=== PATIENT | male | born 1950 | race Caucasian/White ===

== ENCOUNTER 2025-06-22 09:01 | Outpatient (AMB) | payer MEDICARE, SELFPAY ==
[2025-06-22 09:27] VITALS: BMI 31.2
--- NOTE | 2025-06-22 09:27 | A.SPINEOV_ITS ---
Vital Signs 06/22/25 09:27 Height 5 ft 8 in Weight 205 lb BMI 31.2 Intake Visit Reasons: lumbar radiculopathy Intake Note: Mr. Farias is here today c/o whole back pain that radiates down the legs causing numbness. 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 He is a very nice 74-year-old gentleman who underwent lumbar decompression surgery with Dr. Tapia about 15 years ago with excellent success, more recently underwent a cervical laminectomy C4-[address] Sanchez in March of this year for cervical myelopathy seen on his imaging. He presents today for evaluation of back pain going down into his right leg along the distribution of the anterior thigh, posterolateral thigh and into his outer calf. He has a little difficulty articulating some details, but it sounds like he discuss his low back with Dr. Sanchez and was told he was not surgical. He was referred to your office and underwent a right L3 and right L4 TFESI for which he reports that he did have a significant improvement in the pain and tingling in his back as well as going down his right leg. In general, the back pain in the leg pain are equally as bothersome. His pain is intensified with activity and walking and goes away when he sits down. He was taking a leave for a little while, but he is on Eliquis and had to stop this. It really did not help much. He underwent physical therapy and that aggravated things. He is here today to be evaluated to see if there is anything surgical that can be done as the symptoms are progressing to where he is having a hard time doing simple things like mowing his lawn or daily tasks around the house. PMH: Again, difficulty with articulating specific details about his medical history, but reports some kind of issue with AFib, he is on Eliquis but reports he had a cardiac ablation and this resolve the issue but for reasons that remain unclear he is still on Eliquis. I am wondering if it is still paroxysmal as he did report 1 time last year he had an elevation in his heart rate, but tells me he follows his heart rate regularly on his fit bit and there has been no irregularities or elevations in the last year. He has a history of hypertension, high cholesterol, GERD, BPH. He had a shoulder replacement, ankle replacement in the above-mentioned spinal surgeries. Denies any history of coronary disease, strokes, pulmonary problems, liver or kidney disease, blood clots, cancer, diabetes or major abdominal surgery. Social hx: Quit smoking over 10 years ago, drinks socially and does not use any recreational drugs Medications: Eliquis, losartan, simvastatin, Flomax, omeprazole, hydrochlorothiazide Allergies: None Physical exam: Awake alert oriented no acute distress, able to stand and walk in the hallway, some difficulty with tandem gait walking. Strength reveals a mild weakness in his hip flexors but otherwise his strength is full. He has reduced range of motion of his right shoulder secondary to surgery. Diffusely hyperreflexic with clonus and Gannon's sign. He has a well healed scar in the back of his neck and his lower lumbar region. Imaging review: Cervical MRI done in December at [facility] reveals auto fusion of C5-6 and severe stenosis at C4-5 with cord signal change. Presumably this is the site of the surgery that Dr. Hebert did. Lumbar MRI also done at [facility] shows diffuse degenerative disc disease with scoliotic curvature at L2-3 and L3-4. There is multilevel facet arthropathy throughout the lumbar spine. There is postsurgical changes at what appear to be L5-S1 and L4-5. There is a synovial cyst on the right at L4-5 as well. I do not see that it is compressing the nerves. The L3-4 lateral recess on the right is significantly compressed as is the foramen. Impression: 74-year-old male with history of recent cervical laminectomy C4-5 for myelopathy done by Dr. Sanchez at [facility], previous history about 15 years ago of a lumbar decompression done by Dr. Tapia with excellent results. He presents today for evaluation of back pain and right anterior thigh, knee and lateral calf pain as well as some posterolateral thigh pain with standing and walking. The back pain localizes itself diffusely to the lumbar area. I reviewed his lumbar spine MRI done at [facility] in his shows diffuse degenerative disc disease with scoliotic curvature with the apex at L 3 4 where there is lateral listhesis of L3 on L4, in addition to some degree of listhesis of L2-3. He also has significant facet arthropathy all throughout the lumbar spine. There is lateral recess stenosis at L3-4 as well as foraminal stenosis in the right L3 foramen. All of this is seen in context of postsurgical changes in the lower lumbar levels, there appears to be some kind of calcified soft tissue at L5-S1. He did respond well to an injection in the right L3 and right L4 foramen. It was subtotal improvement in his pain but there was enough where it made things much he is here to get up and move around. This certainly helps us localize potential surgical target, however because of the scoliosis he would be looking at likely lumbar fusion to correct this. I would like to review his imaging with Dr. Tracey and get a set of standing flexion-extension x-rays we can be more clear on the exact degree of scoliosis. Once I have a chance to review everything I will call the patient and see if Dr. Tracey thinks he is a surgical candidate. With regard to his cervical spine, the patient continues to complain of weakness in his legs as well as numbness in his arms. It sounds like before surgery he was told that all the symptoms would go away, but given the amount of cord signal change on his preoperative MRI I counseled him that the goal of surgery in that situation generally is to prevent the patient from getting worse and that the symptoms in the arms and legs may never totally go away although sometimes the body can heel and it will improve. Thank you for allowing us to care for your patient. The total time spent with this visit with this patient was 65 minutes reviewing history, physical exam, lumbar and cervical imaging review, and implementation of treatment plan or further diagnostic testing Brent Tracey MD,PhD [facility] Orders: Orders XR lumbar spine 4V min Today M41.20 - Other idiopathic scoliosis, site unspecified Coding Level of Care Code New Pt Level 5 (02929) Diagnoses Scoliosis (and kyphoscoliosis), idiopathic M41.20 Cervical myelopathy G95.9
--- OUTSIDE RECORDS SUMMARY | 2025-06-22 09:45 | XMS_ITS | Encounter Summary ---
Author Organization [facility] Address [address] [place] [address] Care Team Providers Care Custom Furrier Name Role Phone Unavailable Primary Care Provider Unavailabl e Encounter Details Date Type Department Care Team (Late st Contact Info) Description 02/12/2025 Lab Requisition [facility] - Main Lab [address] [facility] [place] [address] Jovany Chand MD [address] [facility] [address] [place] [address] Elevated prostate specific antigen (PSA) Social History Tobacco Use Types Packs/Day Years Used Date Smoking Tobacco: Former Smokeless Tobacco: Never Alcohol Use Standard Drinks/Week Comments Yes 0 (1 standard drink = 0.6 oz pur e alcohol) Sex and Gender Information Value Date Recorded Sex Assigned at Not on file Legal Sex Male 9:59 AM EST Gender Identity Not on file Sexual Orientation Not on file documented as of this encounter Plan of Treatment Not on file documented as of this encounter Procedures Procedure Name Priority Date/Time Associated Diagnosis Comments PROSTATE SPECIFIC ANTIGEN DIAGNOSTIC Routine 02/12/2025 10:14 AM EDT Elevated prostate specific antigen (PSA) documented in this encounter Results * (ABNORMAL) Prostate specific antigen diagnostic (02/12/2025 10:14 AM EDT) PSA 12.05(H) 0.00 - 4.00 ng/mL LAB CHEMISTRY METHOD 02/12/2025 4:24 PM EDT [facility] Blood Venous blood specimen / Unknown 02/12/2025 10:14 AM EDT 02/12/2025 3:45 PM EDT Narrative [facility] - 02/12/2025 4:24 PM EDT The Siemens Advia Centaur Chemiluminescent Immunoassay is used. Results obtained with different assay methods or kits cannot be used interchangeably. Results cannot be interpreted as absolute evidence of the presence or absence of malignant disease. us Jovany Chand MD LAB BLOOD ORDERABLES Final Resul t [facility] [address] [place] [address], documented in this encounter Visit Diagnoses Diagnosis Elevated prostate specific antigen (PSA) documented in this encounter
--- OUTSIDE RECORDS SUMMARY | 2025-06-22 09:45 | XMS_ITS | Encounter Summary ---
Author Organization [facility] Address [address] [place] [phone] Phone Care Team Providers Care Ticketing Agent Name Role Phone Durga Mitchell MD Primary Care Provider Encounter Details Date Type Department Care Team (Late st Contact Info) Description 08/27/2019 Procedure Pass [facility] [address] [place] [address] Social History Tobacco Use Types Packs/Day Years Used Date Smoking Tobacco: Never Assessed Sex and Gender Information Value Date Recorded Sex Assigned at Not on file Legal Sex Male 10:15 AM EDT Gender Identity Not on file Sexual Orientation Not on file documented as of this encounter Plan of Treatment Not on file documented as of this encounter Visit Diagnoses Not on filedocumented in this encounter Care Teams Ticketing Agent Relationship Specialty Start Date End Date Durga Mitchell MD PCP - General Internal Medicine 07/01/19 documented as of this encounter Additional Source Comments The information contained in this document represents components of the legal health record. It is not the complete legal health record.[facility]
== END 2025-06-22 10:30 | disposition home or self-care (01) ==
LOC: HO.HNS 09:07
PROVIDERS: Referring Provider Physical Medicine & Rehabilitation; Visit Provider Physician Assistant
DX: M41.20 Other idiopathic scoliosis, site unspecified (principal); G95.9 Disease of spinal cord, unspecified
CPT/HCPCS: 99205

== ENCOUNTER 2025-06-22 09:01 | Outpatient (REF) | payer MEDICARE, SELFPAY ==
--- NOTE | ~2025-06-22 | XR_ITS ---
EXAMINATION: X-ray lumbar spine. CLINICAL INFORMATION: Idiopathic scoliosis TECHNIQUE: AP and lateral views. Lateral views during flexion and extension position.. COMPARISON: None FINDINGS: Multilevel marginal osteophyte formation and endplate sclerosis and decreased intervertebral disc height throughout the axial skeleton. Dextroconvex rotoscoliosis apex at L2. No acute cortical disruption. No gross lytic or blastic lesions. Old superior endplate compression deformity representing 40-50 % volume loss at L1 vertebra. No gross malalignment in neutral nor flexion and or extension position. Vascular calcifications, aorta and iliac arteries. XR/XR lumbar spine 4V min IMPRESSION: Multilevel thoracolumbar spondylosis and dextroconvex rotoscoliosis apex at L2 without acute fracture or listhesis or gross instability. Atherosclerosis disease. Electronically signed by: Costa Pulido MD 06/22/2025 10:22 AM EDT
== END 2025-06-22 09:02 | disposition home or self-care (01) ==
LOC: HO.HOSX 09:01
PROVIDERS: Referring Provider Physical Medicine & Rehabilitation; Visit Provider Physician Assistant
DX: M41.26 Other idiopathic scoliosis, lumbar region (principal); G95.9 Disease of spinal cord, unspecified; M51.360 Other intervertebral disc degeneration, lumbar region with discogenic back pain only; M47.816 Spondylosis without myelopathy or radiculopathy, lumbar region; R20.0 Anesthesia of skin; Z79.899 Other long term (current) drug therapy; Z79.01 Long term (current) use of anticoagulants; Z98.1 Arthrodesis status
CPT/HCPCS: 72110; 99202

== ENCOUNTER → 2025-06-22 10:03 | Outpatient (BNV) | payer MEDICARE, SELFPAY | PROVIDERS: Referring Provider Physical Medicine & Rehabilitation; Visit Provider Radiology Diagnostic Radiology | DX: M41.86 Other forms of scoliosis, lumbar region (principal); M47.815 Spondylosis without myelopathy or radiculopathy, thoracolumbar region; I70.90 Unspecified atherosclerosis | CPT/HCPCS: 72110 ==

== ENCOUNTER 2025-07-13 09:03 | Emergency (ER) | payer MEDICARE, SELFPAY ==
--- NOTE | ~2025-07-13 | CT_ITS ---
EXAMINATION: CT ABDOMEN AND PELVIS WITH CONTRAST CLINICAL INFORMATION: Unable to urinate. COMPARISON: None available. TECHNIQUE: Multidetector volumetric images were obtained from the superior aspect of the liver through the pubic symphysis following administration 85 mL of Omnipaque 350 intravenous contrast. Sagittal and coronal reformatted images were obtained on the technologist's workstation. Oral contrast: No This CT examination was performed using dose optimization techniques as appropriate, variously including the following: *Automated exposure control *Adjustment of mA and/or kV according to patient size (this includes techniques or standardized protocols for targeted exams where dose is matched to indication/reason for exam; i.e. extremities or head) *Use of iterative reconstruction technique. DLP: 772 mGy centimeter. FINDINGS: LUNG BASES: Pulmonary patchy groundglass in the periphery of the left lower lung lobe/lingula. LIVER, GALLBLADDER, AND BILIARY TREE: Liver measures 13 cm. No focal mass. Main portal vein and hepatic veins and intrahepatic portion of the IVC are patent 8 mm hypodensity in the posterior right hepatic lobe/segment 4 A4 B.. No pericholecystic fluid collection or gallbladder wall thickening. Gallbladder is nondistended. No intrahepatic or extrahepatic biliary ductal dilatation. PANCREAS: No focal mass. No peripancreatic fluid collection. No main pancreatic ductal dilatation. SPLEEN: 9 cm. No focal mass. ADRENAL GLANDS: No nodular lesions. KIDNEYS AND URETERS: No hydronephrosis. No gross nephrolithiasis. Subcentimeter cyst, right kidney. Nonspecific perinephric edema pattern. The ureters are not dilated. BLADDER: There is a Talavera catheter in a collapsed bladder. GASTROINTESTINAL TRACT: 3 cm diverticulum, third portion of the duodenum. Small hiatal hernia. Abundant stool large intestine. No intestinal obstruction pattern. No pneumatosis intestinalis. No pneumoperitoneum. No ascites. The appendix is normal. ABDOMINAL WALL: No gross umbilical hernia. LYMPH NODES: No mesenteric or retroperitoneal lymphadenopathy. VASCULAR: Mixed plaques throughout the abdominal aorta wall and iliac arteries the origin of the mesenteric arteries and main renal arteries. No aneurysm or dissection, abdominal aorta. Mixed plaques in the femoral arteries and the coronary arteries. Mixed plaques in the thoracic aorta. PELVIC VISCERA: There is a 7 cm heterogeneously enlarged prostate gland protruding upon the urinary bladder floor. OSSEOUS STRUCTURES: Multilevel thoracolumbar spondylosis pronounced at L2-3, L3-4. Dextroconvex rotoscoliosis apex at L2-3. Degenerative changes in the coxofemoral joints and symphysis pubis. No lytic or blastic lesions. CT/CT abdomen pelvis w IV con IMPRESSION: 7 cm heterogeneously enlarged prostate gland suggesting benign prostate hyperplasia. Malignancy cannot be entirely excluded. Fleischner guidelines were followed. Electronically signed by: Costa Pulido MD 07/13/2025 12:09 PM EDT
--- NOTE | 2025-07-13 09:13 | ED_ITS ---
HPI - General Adult General Chief complaint: Urogenital-Male Stated complaint: ABD PAIN, UNABLE TO URINATE X2D PER EMS Time Seen by Provider: 07/13/25 09:09 Source: patient and RN notes reviewed Mode of arrival: EMS Limitations: no limitations History of Present Illness ED Provider: Rl Gaston PA-C HPI narrative: 74 yo M with medical history of BPH presents to the ED due to 12 hours of inability to urinate. Patient states last urination was approximately 8:00 p.m. last night, with baseline straining to urinate, denies any blood in the urine. Patient reports he has tried to urinate with excessive straining but nothing came out. Patient awoke this morning still unable to urinate and decided to come to the ED for further evaluation. Patient states he has never experienced an episode like this in the past. Denies chest pain, shortness of breath, nausea, vomiting, blood in the urine MD complaint: inability to urinate Related Data Allergies Allergy/AdvReac Type Severity Reaction Status Date / Time No Known Allergies Allergy Verified 07/13/25 09:18 Review of Systems 2 Review of Systems: CONST: Negative for fever, body aches and chills. HENT: Negative for neck pain/stiffness, headache, congestion, sore throat, swelling. EYES: Negative for discharge/pain or vision changes. RESP: Negative for cough/hemoptysis and shortness of breath. CV: Negative chest pain, difficulty breathing, palpitations. ABD: Negative, nausea, vomiting. POS suprapubic pain and distention : Negative increase frequency, dysuria, blood in urine or stool. POS inability to urinate MUSC: Negative for muscle aches, edema. SKIN: Negative rash, lesions/sores. NEURO: Negative headache, dizziness, weakness. Yes all other systems are reviewed and are negative PMFSH Past Medical History Attestation statement: The following information was validated with the patient. Source: old records reviewed and nursing notes reviewed Social History Social History Alcohol intake: current Alcohol intake frequency: a few times a month Alcohol type: beer Smoked in Last 30 Days: No Use of substances other than those prescribed or required for medical reasons: No Advance Directives: No Advance Directives Information Provided: Yes Do you have a plan to hurt others: No Plan Physical Exam ED Vital Signs: Vital Signs - 24 hr 07/13/25 09:16 07/13/25 09:30 Temperature 97.7 F 97.5 F Pulse Rate 105 H 100 Respiratory Rate 17 18 Blood Pressure 166/86 H 166/86 H Pulse Oximetry 97 98 Oxygen Delivery Method Room Air Room Air BMI result Body Mass Index 31.1 GENERAL APPEARANCE: ?AxOx4, generally well-appearing, no acute distress. HEENT: ?NC, AT. MMM. EOMI, clear conjunctiva, oropharynx clear. NECK: ?Supple without lymphadenopathy.? No stiffness or restricted ROM. HEART:? Normal rate and regular rhythm, normal S1/S2, no m/r/g LUNGS:? CTAB, moving air well. No crackles or wheezes are heard. ABDOMEN: Belly round, mildly distended, suprapubic tenderness, distention, no overlying skin changes BACK: No CVAT, no obvious deformity. EXTREMITIES: ?Without cyanosis, clubbing or edema. NEUROLOGICAL: ?Grossly nonfocal. Alert and oriented, moving all 4 extremities. Skin: ?Warm and dry without any rash. Medications Administered Discontinued Medications Generic Name Dose Route Start Last Admin Trade Name Freq PRN Reason Stop Dose Admin Iohexol 100 ml 07/13/25 11:34 07/13/25 11:43 Iohexol 350 Mg/Ml 100 Ml Infus..Btl IV 07/13/25 11:35 85 ml ONCE ONE Administration Medical Decision Making Medical Decision Making MDM Narrative: 74 yo M with medical history of BPH presents to the ED due to 12 hours of inability to urinate. Patient states last urination was approximately 8:00 p.m. last night, with baseline straining to urinate, denies any blood in the urine. Patient reports he has tried to urinate with excessive straining but nothing came out. Patient awoke this morning still unable to urinate and decided to come to the ED for further evaluation. Patient states he has never experienced an episode like this in the past. Bladder scan revealed 1,037 mL of urine in bladder. Talavera catheter placed 900mL in Talavera bag. Plan: labs, UA, CT abdomen/pelvis for observation of obstructing stone/mass Course 12:23- Labs without leukocytosis, H and H stable, no electrolyte abnormality. UA reveals 2+ urine blood, greater than 20 urine RBCs, 0-5 urine WBCs, no urine bacteria. CT abdomen and pelvis reveals a 7 cm heterogenously enlarged prostate gland suggestive of BPH, a malignancy can not be entirely excluded. There was a patchy ground glass opacity in the left lower lung lobe however, patient without cough, shortness of breath, chest pain, afebrile, no leukocytosis/leukopenia- do not believe patient needs antibiotic therapy at this time Patient to be discharged with Talavera catheter in place and referral placed for [facility] urology follow up, patient already prescribed 0.4 tamsulosin. Differential Diagnosis Differential Diagnoses: The differential diagnosis associated with the presentation includes Obstructive nephrolithiasis BPH Prostate mass Admission/Observation Consideration of admission/observation: Escalation of care including admission/observation considered Lab Data MDM Lab Attestation statement: I reviewed the patient's lab results. 07/13/25 10:06 07/13/25 10:06 Labs: Lab Results 07/13/25 07/13/25 Range/Units 09:41 10:06 WBC 8.0 (4.8-10.8) X10*3/uL RBC 4.40 L (4.60-5.80) X10*6/uL Hgb 13.6 L (14.0-18.0) g/dl Hct 41.0 L (42.0-52.0) % MCV 93.2 (80.0-98.0) fL MCH 30.9 (27.0-33.0) pg MCHC 33.2 (31.0-36.0) g/dl RDW 13.1 (11.0-16.0) % Plt Count 193 (160-400) X10*3/uL MPV 9.7 (9.4-12.4) fL Immature Gran % (Auto) 0.5 H (0.0-0.4) % Neut % (Auto) 66.8 (45-73) % Lymph % (Auto) 21.6 (20-40) % [place] % (Auto) 10.2 (2-11) % Eos % (Auto) 0.5 (0-4) % Baso % (Auto) 0.4 (0-2) % Lymph # (Auto) 1.7 (1.2-4.9) X10*3/uL [place] # (Auto) 0.8 (0.1-1.2) X10*3/uL Eos # (Auto) 0.0 (0.0-0.4) X10*3/uL Baso # (Auto) 0.0 (0.0-0.2) X10*3/uL Abs Immat Gran (auto) 0.04 H (0.00-0.03) X10*3/uL Absolute Neuts (auto) 5.4 (2.0-8.3) x10*3/uL Absolute Nucleated RBC 0.000 (0.0-0.012) X10*3/uL Nucleated RBC % (auto) 0.0 (0.0-0.2) /100WBC Sodium 141 (135-145) mmol/L Potassium 4.0 (3.3-5.1) mmol/L Chloride 110 H (96-108) mmol/L Carbon Dioxide 16 L (22-29) mmol/L Anion Gap 19 (12-20) BUN 18 H (9-16) mg/dL Creatinine 0.81 (0.5-1.4) mg/dL Estim Creat Clear Calc 88.4 Estimated GFR > 60 Random Glucose 93 (60-115) mg/dL Calcium 8.5 (8.4-10.2) mg/dL Total Bilirubin 0.4 (0.0-1.0) mg/dL AST 42 H (5-37) U/L ALT 23 (0-40) U/L Alkaline Phosphatase 100 (39-117) U/L Total Protein 6.7 (6.5-8.0) g/dL Albumin 4.1 (3.5-5.0) g/dL Urine Color Yellow Urine Appearance Clear Urine pH 5.0 (5.0-9.0) Ur Specific [place] 1.015 (1.005-1.025) Urine Protein Trace (Neg-Trace) mg/dL Urine Glucose (UA) Negative (Negative) mg/dL Urine Ketones Trace (Negative) mg/dL Urine Blood Moderate (2+) H (Negative) Urine Nitrite Negative (Negative) Ur Leukocyte Esterase Negative (Negative) Urine RBC >20 H (0-2) /HPF Urine WBC 0-5 (0-5) /HPF Ur Squamous Epith Cells 0-2 (0-2) /HPF Urine Bacteria None Seen (None Seen) Hyaline Casts 0-2 (0-2) /LPF Independent Interpretation I performed an independent interpretation of an: CT Scan Radiology Impression Discussion of test interpretation with radiology: I have reviewed the radiologist's reading. Radiologist Impression: CT abdomen/pelvis FINDINGS: LUNG BASES: Pulmonary patchy groundglass in the periphery of the left lower lung lobe/lingula. LIVER, GALLBLADDER, AND BILIARY TREE: Liver measures 13 cm. No focal mass. Main portal vein and hepatic veins and intrahepatic portion of the IVC are patent 8 mm hypodensity in the posterior right hepatic lobe/segment 4 A4 B.. No pericholecystic fluid collection or gallbladder wall thickening. Gallbladder is nondistended. No intrahepatic or extrahepatic biliary ductal dilatation. PANCREAS: No focal mass. No peripancreatic fluid collection. No main pancreatic ductal dilatation. SPLEEN: 9 cm. No focal mass. ADRENAL GLANDS: No nodular lesions. KIDNEYS AND URETERS: No hydronephrosis. No gross nephrolithiasis. Subcentimeter cyst, right kidney. Nonspecific perinephric edema pattern. The ureters are not dilated. BLADDER: There is a Talavera catheter in a collapsed bladder. GASTROINTESTINAL TRACT: 3 cm diverticulum, third portion of the duodenum. Small hiatal hernia. Abundant stool large intestine. No intestinal obstruction pattern. No pneumatosis intestinalis. No pneumoperitoneum. No ascites. The appendix is normal. ABDOMINAL WALL: No gross umbilical hernia. LYMPH NODES: No mesenteric or retroperitoneal lymphadenopathy. VASCULAR: Mixed plaques throughout the abdominal aorta wall and iliac arteries the origin of the mesenteric arteries and main renal arteries. No aneurysm or dissection, abdominal aorta. Mixed plaques in the femoral arteries and the coronary arteries. Mixed plaques in the thoracic aorta. PELVIC VISCERA: There is a 7 cm heterogeneously enlarged prostate gland protruding upon the urinary bladder floor. OSSEOUS STRUCTURES: Multilevel thoracolumbar spondylosis pronounced at L2-3, L3-4. Dextroconvex rotoscoliosis apex at L2-3. Degenerative changes in the coxofemoral joints and symphysis pubis. No lytic or blastic lesions. CT/CT abdomen pelvis w IV con IMPRESSION: 7 cm heterogeneously enlarged prostate gland suggesting benign prostate hyperplasia. Malignancy cannot be entirely excluded. Fleischner guidelines were followed. Electronically signed by: Costa Pulido MD 07/13/2025 12:09 PM EDT Dictated By: Costa Talbert MD Signed By: <Electronically signed by Costa Healy MD in OV> 07/13/25 5221 Independent Historian Clinical information obtained from an independent historian. History obtained from or confirmed by: Spouse ( at bedside corroborating history) External Record Review External record reviewed: Inpatient record, Office record and Outpatient record Prescription Management I considered prescription management with: Other (tamsulosin) I considered prescription for tamsulosin, however patient already on this medication. Chronic Conditions Patient?s care impacted by: Other (BPH) Discharge Plan Discharge Clinical Impression: Urinary retention Patient Disposition: Home, Self-Care Instructions: Urinary Retention in Men (ED) Additional Instructions: You were evaluated in the ED today due to urinary retention that began last night. Your blood work was negative for infection or electrolyte abnormality. Your urinalysis revealed blood in the urine without evidence of infection, this could be due to BPH. The CT scan of your abdomen and pelvis revealed an opacity in your left lung that may be pneumonia, however you were asymptomatic without cough, chest pain, shortness of breath, afebrile without evidence of infection of your lab work, I do not believe you need antibiotic therapy at this time. Your bladder scan revealed 1037 mL of retained urine. A Talavera catheter was placed and approximately 900 mL of urine was drained. You will be discharged home with Talavera catheter in place. You are being referred to [facility] for follow-up. [facility] will be contacting you within 2 business?days after being discharged from the Emergency?Department.? During this?phone call, they will inform you when your follow up appointment will be scheduled. If you have not received a call from [facility] after 2 business?days, please call the?office at [phone]. Continue all your home medications as prescribed. Please return to the emergency department if you experience abdominal pain or distention, no urinary output into the Talavera catheter bag, blood in the catheter, fevers over 100.4, cough, shortness of breath, chest pain, nausea, vomiting or any other new/worsening/concerning symptom. Referrals: [facility] Services [Provider Group, Urology] Referral Note: CT with 7cm enlarged prostate gland protruding upon the urinary bladder floor, malignancy can not be excluded. Print Language: Sami
[2025-07-13 09:16] VITALS: BP 158/112; BP 166/86; PULSE 105; PULSE 106; RESP 17; TEMP 36.5; O2SAT 97; BMI 31.1
[2025-07-13 09:30] VITALS: BP 166/86; PULSE 100; RESP 18; TEMP 36.4; O2SAT 98
--- NOTE | 2025-07-13 09:36 | PC.NURSE ---
74 M presents to ED with difficulty urinating for a while, unable to urinate since last night, lower abdominal pain. Bladder scan showed over 1,000 ml of urine. RR even and unlabored, denies SOB or CP. Pt denies abdominal pain following the cath placement. Lung sounds clear bilat. Pt sts he walks independently but has a hx of upper and lower back surgeries.
[2025-07-13 09:51] LABS: Appearance Urine Clear; Glucose Urine UA Negative (Negative); PH 5.0 (5.0-9.0); Specific Gravity - Urine 1.015 (1.005-1.025); UMIC TRIGGER UACC YES
[2025-07-13 10:12] LABS: MANUAL DIFF FLAG NO
[2025-07-13 10:14] LABS: Hematocrit 41.0 % (42.0-52.0); Hemoglobin 13.6 g/dl (14.0-18.0); Imm Gran Abs Auto 0.04 X10*3/uL (0.00-0.03); Imm Gran Pct Auto 0.5 % (0.0-0.4); Lymphocytes Absolute Auto 1.7 X10*3/uL (1.2-4.9); Mean Corpuscular HGB Conc 33.2 g/dl (31.0-36.0); Mean Corpuscular Hemoglobin 30.9 pg (27.0-33.0); Mean Corpuscular Volume 93.2 fL (80.0-98.0); NRBC Abs Auto 0.000 X10*3/uL (0.0-0.012); NRBC Pct Auto 0.0 /100WBC (0.0-0.2); Platelet Count 193 X10*3/uL (160-400); Red Blood Count 4.40 X10*6/uL (4.60-5.80); White Blood Count 8.0 X10*3/uL (4.8-10.8)
[2025-07-13 10:44] LABS: Alanine Aminotransferase 23 U/L (0-40); Albumin Level 4.1 g/dL (3.5-5.0); Alkaline Phosphatase 100 U/L (39-117); Anion Gap 19 (12-20); Aspartate Amino Transferase 42 U/L (5-37); Blood Urea Nitrogen 18 mg/dL (9-16); Calcium 8.5 mg/dL (8.4-10.2); Carbon Dioxide 16 mmol/L (22-29); Chloride 110 mmol/L (96-108); Creatinine Clr Calc Pharmacy 88.4; Estimated Glomerular Filt Rate > 60; Potassium 4.0 mmol/L (3.3-5.1); Sodium 141 mmol/L (135-145); Total Protein 6.7 g/dL (6.5-8.0)
--- OUTSIDE RECORDS SUMMARY | 2025-07-13 11:34 | XMS_ITS | Encounter Summary ---
Author Organization [facility] Address [address] [place] [phone] Phone Care Team Providers Care Bed Setter Name Role Phone Durga Mitchell MD Primary Care Provider Encounter Details Date Type Department Care Team (Late st Contact Info) Description 08/27/[address] [facility] Imaging [address] [place] [address] Social History Tobacco Use Types Packs/Day Years [...] on filedocumented in this encounter Care Teams Bed Setter Relationship Specialty Start Date End Date Durga Mitchell MD PCP - General Internal Medicine 07/01/19 documented as of this encounter Additional Source Comments The information contained in this document represents components of the legal health record. It is not the complete legal health record.[facility]
--- OUTSIDE RECORDS SUMMARY | 2025-07-13 11:34 | XMS_ITS | Encounter Summary ---
Author Organization [facility] Address [address] [place] [address] Care Team Providers Care Health Services Information Specialist Name Role Phone Unavailable Primary Care Provider Unavailabl e Encounter Details Date Type Department Care Team (Late st Contact Info) Description 02/12/2025 Lab Requisition [facility] - Main Lab [address] [facility] [place] [address] Jovany Chand MD [address] [facility] [address] [place] [address] Elevated prostate specific antigen (PSA) [...] LAB CHEMISTRY METHOD 02/12/2025 4:24 PM EDT [facility] Blood Venous blood specimen / Unknown 02/12/2025 10:14 AM EDT 02/12/2025 3:45 PM EDT Narrative [facility] - 02/12/2025 4:24 PM EDT The Siemens Advia Centaur Chemiluminescent Immunoassay is used. Results obtained with different assay methods or kits cannot be used interchangeably. Results cannot be interpreted as absolute evidence of the presence or absence of malignant disease. us Jovany Chand MD LAB BLOOD ORDERABLES Final Resul t [facility] [address] [place] [address], documented in this encounter Visit Diagnoses Diagnosis Elevated prostate specific antigen (PSA) documented in this encounter
[2025-07-13] MEDS: iohexoL 350 MG/ML 100 ML INFUS..BTL IV (11:43)
[2025-07-13 13:08] VITALS: BP 143/79; PULSE 102; RESP 18; TEMP -17.7; TEMP 0; O2SAT 97
[2025-07-13 13:31] VITALS: BP 143/79; PULSE 102; RESP 18; TEMP -17.7; TEMP 0; O2SAT 97
== END 2025-07-13 13:32 | disposition home or self-care (01) ==
PROVIDERS: Emergency Provider Emergency Medicine; PCP Internal Medicine
DX: R33.9 Retention of urine, unspecified (principal); R39.198 Other difficulties with micturition
CPT/HCPCS: 36415; 74177; 80053; 81001; 85025; 99284; Q9967

== ENCOUNTER → 2025-07-13 09:23 | Outpatient (BNV) | payer MEDICARE, SELFPAY | PROVIDERS: Emergency Provider Emergency Medicine; PCP Internal Medicine; Visit Provider Radiology Diagnostic Radiology | DX: N40.1 Benign prostatic hyperplasia with lower urinary tract symptoms (principal) | CPT/HCPCS: 74177 ==

== ENCOUNTER 2025-07-24 23:56 | Inpatient (IN) | payer MEDICARE, SELFPAY ==
--- NOTE | ~2025-07-24 | CT_ITS ---
CLINICAL HISTORY: obstructive uropathy?sun hematuria renal stones? CT abdomen and pelvis without contrast Comparison: CT/SR - CT ABDOMEN PELVIS WITH IV CONTRAST - 07/13/25 11:30 EDT Findings: There is unchanged mild subpleural scarring/fibrosis in the lung bases. There is a small hepatic cyst. The gallbladder is contracted, but otherwise unremarkable. The pancreas, spleen, adrenal glands, and kidneys are unremarkable. There is no urolithiasis or hydronephrosis. The prostate is enlarged. The bladder is decompressed with a Talavera catheter. The appendix is normal. There is mild diverticulosis in the left hemicolon. There is a duodenal diverticulum. The remainder of the gastrointestinal tract is unremarkable. There is no free fluid or free air. There are no enlarged lymph nodes. The aorta is normal in diameter. There are degenerative changes in the lumbar spine. There is no fracture or suspicious lytic or sclerotic lesion. IMPRESSION: 1. No acute abnormality in the abdomen or pelvis. 2. Large prostate. Bladder is decompressed with a Talavera catheter. This document has been electronically signed by: Chris Warner MD on 07/25/2025 03:23:39
[2025-07-24 23:58] VITALS: BP 171/80; PULSE 110; RESP 22; TEMP 36.7; O2SAT 98; BMI 30.5
[2025-07-25] VITALS (10 sets, daily range): BP systolic 119–151; BP diastolic 65–76; PULSE 83–105; RESP 14–20; TEMP 36.7–38.5; O2SAT 95–99; BMI 32.6
--- NOTE | 2025-07-25 00:27 | ED_ITS ---
HPI - General Adult General Chief complaint: Abdominal Pain Stated complaint: Abdominal Pain Time Seen by Provider: 07/25/25 00:11 Source: patient Limitations: no limitations History of Present Illness ED Provider: Tayo Talavera PA-C HPI narrative: 74-year-old male with a history of AFib on Eliquis, hypertension, hyperlipidemia, BPH, with recent episode of urinary retention status post Talavera placement on July 13, who just had a removed yesterday, presents with urinary retention. Patient states the Talavera catheter was removed, he was passing sun hematuria at home. Throughout the day, patient has had decreased urine output, he developed new onset pain over the bladder, and inability to void overnight. Denies history of kidney stones, back pain, flank pain, nausea, vomiting or known fever. Denies recent cough or cold symptoms. Related Data Allergies Allergy/AdvReac Type Severity Reaction Status Date / Time No Known Allergies Allergy Verified 07/25/25 00:00 Review of Systems 2 Review of Systems: Yes all other systems are reviewed and are negative Constitutional: Constitutional: Denies fatigue and Reports fever(s) Cardiovascular: Cardiovascular: Denies chest pain and Denies dyspnea Respiratory: Respiratory: Denies cough and Denies dyspnea Gastrointestinal: Gastrointestinal: Denies abdominal pain, Denies nausea and Denies vomiting Genitourinary: Genitourinary: Reports hematuria, Denies dysuria and Denies flank pain Musculoskeletal: Musculoskeletal: Denies back pain Endocrine: Endocrine: Denies fatigue [facility] Past Medical History Attestation statement: The following information was validated with the patient. Social History Social History Alcohol intake: current Alcohol intake frequency: a few times a month Alcohol type: beer Advance Directives: No Advance Directives Information Provided: Yes Do you have a plan to hurt others: No Plan Physical Exam ED Vital Signs: Vital Signs - 24 hr 07/24/25 23:58 07/25/25 00:27 07/25/25 01:31 Temperature 98.0 F 101.3 F H 99.6 F Pulse Rate 110 H 105 H 101 H Respiratory Rate 22 H 15 20 Blood Pressure 171/80 H 119/76 Pulse Oximetry 98 98 Oxygen Delivery Method Room Air Room Air 07/25/25 01:52 07/25/25 02:02 Temperature Pulse Rate Respiratory Rate Blood Pressure 131/67 133/71 Pulse Oximetry Oxygen Delivery Method BMI result Body Mass Index 30.5 Const Other: Alert well-appearing Orientation/consciousness: patient oriented x3 Resp Effort & Inspection: normal respiratory effort Cardio Other: Normal peripheral perfusion GI Other: Soft, nondistended nontender no guarding General: Yes no CVA tenderness Back/Spine/Pelvis Back: no CVA tenderness Skin Other: Warm dry no rash Neuro General: patient oriented x3, gait normal, no focal motor deficits and CN's II- XI intact bilaterally Psych Other: Cooperative Course Reevaluation(s) Reevaluation #1: At 12:27 p.m. on July 25 a sepsis focused exam was performed. The patient is tachycardic, with a rectal temp of 101.3?, in addition to screening labs we will add blood cultures and lactic. I ordered ideal body weight IV fluid resuscitation, the patient should have 2052 mL total. We will start empiric ceftriaxone. We will give Tylenol for fever Time: 00:27 Reevaluation #2: Lactic 1.3 Medications Administered Generic Name Dose Route Start Last Admin Trade Name Freq PRN Reason Stop Dose Admin Lactated Ringer's 1,000 mls @ 100 mls/hr 07/25/25 03:00 07/25/25 03:11 Lr IVCONT 100 mls/hr .Q10H GANESH Administration Discontinued Medications Generic Name Dose Route Start Last Admin Trade Name Freq PRN Reason Stop Dose Admin Acetaminophen 975 mg 07/25/25 00:21 07/25/25 00:36 Acetaminophen 325 Mg Tablet PO 07/25/25 00:22 975 mg ONCE ONE Administration Ceftriaxone Sodium 1 gm 07/25/25 00:34 07/25/25 00:36 Ceftriaxone Sodium 1 Gm Vial IVPUSH 07/25/25 00:35 1 gm ONCE ONE Administration Ceftriaxone Sodium 1 gm 07/25/25 00:34 07/25/25 00:36 Ceftriaxone Sodium 1 Gm Vial IVPUSH 07/25/25 00:35 1 gm ONCE ONE Administration Sodium Chloride 1,000 mls @ 999 mls/hr 07/25/25 00:30 07/25/25 01:40 Ns IV 07/25/25 01:30 Infused .Q1H1M GANESH Infusion Sodium Chloride 1,000 mls @ 999 mls/hr 07/25/25 00:30 07/25/25 01:40 Ns IV 07/25/25 01:30 Infused .Q1H1M GANESH Infusion Sodium Chloride 500 mls @ 50 mls/hr 07/25/25 00:31 07/25/25 01:08 Ns IV 07/25/25 10:30 Infused .Q10H ONE Infusion Sodium Chloride 50 mls @ 50 mls/hr 07/25/25 01:03 07/25/25 01:40 Ns IV 07/25/25 02:02 Infused .Q1H ONE Infusion Medical Decision Making Medical Decision Making MDM Narrative: 74-year-old male with a history of AFib on Eliquis, hypertension, hyperlipidemia, BPH, with recent episode of urinary retention status post Talavera placement on July 13, who just had a removed yesterday, presents with urinary retention. Patient states the Talavera catheter was removed, he was passing sun hematuria at home. Throughout the day, patient has had decreased urine output, he developed new onset pain over the bladder, and inability to void overnight. Denies history of kidney stones, back pain, flank pain, nausea, vomiting or known fever. Denies recent cough or cold symptoms. Problem: Recent urinary retention with Talavera placement History: Per patient I have considered the following differential diagnoses: Sepsis, pyelonephritis, urinary tract infection, bladder/urethral damage, renal colic Plan: Patient meets sepsis criteria, in addition to screening labs blood cultures and lactic we will be obtained. I calculated weight based IV fluid therapy, the patient should receive 2050 mL of normal saline, we will start empiric ceftriaxone and give Tylenol for the fever. The patient does not have any back or abdominal pain, no active vomiting to suggest renal colic versus pyelonephritis. Airing on the side of caution, we will be obtaining a CT scan of the abdomen and pelvis. To note, now that the patient's urinary retention has been alleviated, the patient has no discomfort over the bladder. Unlikely that he has bladder or urethral trauma given absence of pain. To note, the urine is very bloody, there are no clots, the urine is beginning to clear. He does not require CBI. I have independently reviewed the following tests: Labs: Leukocytosis with left shift, not anemic, no electrolyte abnormality, lactic 1.3, urine is in infected, passing a large degree of hematuria CT abdomen and pelvis:Findings: There is unchanged mild subpleural scarring/fibrosis in the lung bases. There is a small hepatic cyst. The gallbladder is contracted, but otherwise unremarkable. The pancreas, spleen, adrenal glands, and kidneys are unremarkable. There is no urolithiasis or hydronephrosis. The prostate is enlarged. The bladder is decompressed with a Talavera catheter. The appendix is normal. There is mild diverticulosis in the left hemicolon. There is a duodenal diverticulum. The remainder of the gastrointestinal tract is unremarkable. There is no free fluid or free air. There are no enlarged lymph nodes. The aorta is normal in diameter. There are degenerative changes in the lumbar spine. There is no fracture or suspicious lytic or sclerotic lesion. IMPRESSION: 1. No acute abnormality in the abdomen or pelvis. 2. Large prostate. Bladder is decompressed with a Talavera catheter. Differential Diagnosis Differential Diagnoses: The differential diagnosis associated with the presentation includes See [facility] Admission/Observation Consideration of admission/observation: Escalation of care including admission/observation considered We will be admitted Consult Healthcare Provider Management of the patient was discussed with: Hospitalist and [employer] We will likely require urology consult Lab Data [facility] Lab Attestation statement: I reviewed the patient's lab results. 07/25/25 00:28 07/25/25 00:28 Labs: Lab Results 07/25/25 Range/Units 00:28 WBC 14.0 H (4.8-10.8) X10*3/uL RBC 4.43 L (4.60-5.80) X10*6/uL Hgb 13.8 L (14.0-18.0) g/dl Hct 39.3 L (42.0-52.0) % MCV 88.7 (80.0-98.0) fL MCH 31.2 (27.0-33.0) pg MCHC 35.1 (31.0-36.0) g/dl RDW 12.7 (11.0-16.0) % Plt Count 247 D (160-400) X10*3/uL MPV 9.5 (9.4-12.4) fL Immature Gran % (Auto) 0.4 (0.0-0.4) % Neut % (Auto) 76.3 H (45-73) % Lymph % (Auto) 12.8 L (20-40) % [place] % (Auto) 9.3 (2-11) % Eos % (Auto) 1.0 (0-4) % Baso % (Auto) 0.2 (0-2) % Lymph # (Auto) 1.8 (1.2-4.9) X10*3/uL [place] # (Auto) 1.3 H (0.1-1.2) X10*3/uL Eos # (Auto) 0.1 (0.0-0.4) X10*3/uL Baso # (Auto) 0.0 (0.0-0.2) X10*3/uL Abs Immat Gran (auto) 0.05 H (0.00-0.03) X10*3/uL Absolute Neuts (auto) 10.7 H (2.0-8.3) x10*3/uL Absolute Nucleated RBC 0.000 (0.0-0.012) X10*3/uL Nucleated RBC % (auto) 0.0 (0.0-0.2) /100WBC Sodium 139 (135-145) mmol/L Potassium 3.9 (3.3-5.1) mmol/L Chloride 104 (96-108) mmol/L Carbon Dioxide 23 (22-29) mmol/L Anion Gap 16 (12-20) BUN 21 H (9-16) mg/dL Creatinine 1.03 (0.5-1.4) mg/dL Estim Creat Clear Calc 68.8 Estimated GFR > 60 Random Glucose 111 (60-115) mg/dL Lactic Acid 1.3 (0.5-2.0) mmol/L Calcium 9.3 D (8.4-10.2) mg/dL Magnesium 1.9 (1.6-2.6) mg/dL Urine Color Straw Urine Appearance Hazy Urine pH 6.0 (5.0-9.0) Ur Specific [place] <= 1.005 (1.005-1.025) Urine Protein 100 (2+) H (Neg-Trace) mg/dL Urine Glucose (UA) Negative (Negative) mg/dL Urine Ketones Negative (Negative) mg/dL Urine Blood Large (3+) H (Negative) Urine Nitrite Positive H (Negative) Ur Leukocyte Esterase Large (3+) H (Negative) Urine RBC >20 H (0-2) /HPF Urine WBC >50 H (0-5) /HPF Ur Squamous Epith Cells 0-2 (0-2) /HPF Urine Bacteria 4+ (None Seen) Hyaline Casts 0-2 (0-2) /LPF Radiology Impression Discussion of test interpretation with radiology: I have reviewed the radiologist's reading. Critical Care Time Critical Care Time Critical Care Time: Yes Total Critical Care Time: 35 Attestation: I Edita Talaevra PA-C have personally performed 35 minutes of critical care time not including lines and procedures; sepsis Discharge Plan Discharge Clinical Impression: Acute urinary retention, Urinary tract infection, Sepsis Patient Disposition: Admitted As Inpatient
[2025-07-25 00:33] LABS: MANUAL DIFF FLAG NO
[2025-07-25 00:34] LABS: Hematocrit 39.3 % (42.0-52.0); Hemoglobin 13.8 g/dl (14.0-18.0); Imm Gran Abs Auto 0.05 X10*3/uL (0.00-0.03); Imm Gran Pct Auto 0.4 % (0.0-0.4); Lymphocytes Absolute Auto 1.8 X10*3/uL (1.2-4.9); Mean Corpuscular HGB Conc 35.1 g/dl (31.0-36.0); Mean Corpuscular Hemoglobin 31.2 pg (27.0-33.0); Mean Corpuscular Volume 88.7 fL (80.0-98.0); NRBC Abs Auto 0.000 X10*3/uL (0.0-0.012); NRBC Pct Auto 0.0 /100WBC (0.0-0.2); Platelet Count 247 X10*3/uL (160-400); Red Blood Count 4.43 X10*6/uL (4.60-5.80); White Blood Count 14.0 X10*3/uL (4.8-10.8)
[2025-07-25 00:37] LABS: Appearance Urine Hazy; Glucose Urine UA Negative (Negative); PH 6.0 (5.0-9.0); Specific Gravity - Urine <= 1.005 (1.005-1.025); UMIC TRIGGER UACC YES
[2025-07-25 00:44] LABS: UACC Culture Trigger YES
--- NOTE | 2025-07-25 00:44 | PC.NURSE ---
pt recently had gee removed after having it for two weeks, pt complains of blood tinged urine and abdominal pain. Bladder scan revealed 653 mL of urine, gee placed, immediate release of 500 mL, blood tinged, sent down to lab. Provider at bedside. Fluids, antibiotic and Tylenol given per JAN.
[2025-07-25 00:53] LABS: Anion Gap 16 (12-20); Blood Urea Nitrogen 21 mg/dL (9-16); Calcium 9.3 mg/dL (8.4-10.2); Carbon Dioxide 23 mmol/L (22-29); Chloride 104 mmol/L (96-108); Creatinine Clr Calc Pharmacy 68.8; Estimated Glomerular Filt Rate > 60; Magnesium 1.9 mg/dL (1.6-2.6); Potassium 3.9 mmol/L (3.3-5.1); Sodium 139 mmol/L (135-145)
--- OUTSIDE RECORDS SUMMARY | 2025-07-25 02:53 | XMS_ITS | Clinical Summary ---
Author Organization [address] Address [address] [place] [address] Phone Care Team Providers Care Developmental Mathematics Professor Name Role Phone Unavailable Primary Care Provider Unavailabl e Surgical History Surgery Date Site/Laterality Comments OTHER SURGICAL HISTORY 01/17/2022 Right PROCEDURE: MT LAPAROSCOPY SURG RPR INITIAL INGUINAL HERNIA; COMMENT: lap repair RIH with mesh - Katy Tinajero Social History Tobacco Use Types Packs/Day Years Used Date Smoking Tobacco: Former Smokeless Tobacco: Never Alcohol Use Standard Drinks/Week Comments Yes 0 (1 standard drink = 0.6 oz pur e alcohol) Sex and Gender Information Value Date Recorded Sex Assigned at Not on file Legal Sex Male 9:59 AM EST Gender Identity Not on file Sexual Orientation Not on file Obstetrics History Last Filed Vital Signs Vital Sign Reading Time Taken Comments Blood Pressure 132/82 01/31/2022 11:13 AM EST Pulse 81 01/31/2022 11:13 AM EST Temperature - - Respiratory Rate - - Oxygen Saturation - - Inhaled Oxygen Concentration - - Weight 97.3 kg (214 lb 6.4 oz) 01/31/2022 11:13 AM EST Height 170.2 cm (5' 7 ) 01/31/2022 11:13 AM EST Body Mass Index 33.58 01/31/2022 11:13 AM EST Plan of Treatment Health Maintenance Due Date Last Done Comments Zoster Vaccines (1 of 2) 2000 Pneumococcal Vaccine: 50+ Years (2 of 2 - PCV) 10/31/2013 10/31/2012 Abdominal Aortic Aneurysm (AAA) Screen 10/29/2022 Cholesterol Screening (Lipid Panel) 10/29/2022 Colorectal Cancer Screening: Colonoscopy 10/29/2022 Falls Risk Assessment 10/29/2022 Hepatitis C Screening 10/29/2022 Medicare Annual Wellness Visit 10/29/2022 Social Influencers of Health Screening 10/29/2022 COVID-19 Vaccine ( season) 2024 05/08/2022, 10/26/2021, 03/02/2021, Additional history exists Depression Screening 2024 Hypertension/CHF/CAD Annual BMP Blood Test 06/17/2025 Influenza Vaccine (#1) 2025 , 07/20/2023, 09/07/2022, Additional history exists DTaP,Tdap,and Td Vaccines (2 - Td or Tdap) 07/28/2025 07/28/2015 RSV Immunization Adult Patients (1 - 1-dose 75+ series) 2025 HIB Vaccines Aged Out No longer eligi ble based on patient's age to complete this topic HPV Vaccines Aged Out No longer eligi ble based on patient's age to complete this topic Hepatitis A Vaccines Aged Out No long er eligible based on patient's age to complete this topic Hepatitis B Vaccines Aged Out No long er eligible based on patient's age to complete this topic IPV Vaccines Aged Out No longer eligi ble based on patient's age to complete this topic MMR Vaccines Aged Out No longer eligi ble based on patient's age to complete this topic Meningococcal ACWY Vaccine Aged Out N o longer eligible based on patient's age to complete this topic Meningococcal B Vaccine Aged Out No l onger eligible based on patient's age to complete this topic RSV Immunization Patients Under 20 months Aged Out No longer eligible based on patient's age to complete this topic Varicella Vaccines Aged Out No longer eligible based on patient's age to complete this topic Insurance [employer]
--- OUTSIDE RECORDS SUMMARY | 2025-07-25 02:53 | XMS_ITS | Encounter Summary ---
Author Organization [facility] Address [address] [place] [address] Care Team Providers Care Traffic Manager Name Role Phone Unavailable Primary Care Provider Unavailabl e Encounter Details Date Type Department Care Team (Late st Contact Info) Description 02/12/2025 Lab Requisition [facility] - Main Lab [address] [facility] [place] [address] Jovany Chand MD [address] [facility] [address] [place] [address] Elevated prostate specific antigen (PSA) [...] LAB CHEMISTRY METHOD 02/12/2025 4:24 PM EDT [facility] Blood Venous blood specimen / Unknown 02/12/2025 10:14 AM EDT 02/12/2025 3:45 PM EDT Narrative [facility] - 02/12/2025 4:24 PM EDT The Siemens Advia Centaur Chemiluminescent Immunoassay is used. Results obtained with different assay methods or kits cannot be used interchangeably. Results cannot be interpreted as absolute evidence of the presence or absence of malignant disease. us Jovany Chand MD LAB BLOOD ORDERABLES Final Resul t [facility] [address] [place] [address], documented in this encounter Visit Diagnoses Diagnosis Elevated prostate specific antigen (PSA) documented in this encounter
--- OUTSIDE RECORDS SUMMARY | 2025-07-25 02:53 | XMS_ITS | Encounter Summary ---
Author Organization [facility] Address [address] [place] [phone] Phone Care Team Providers Care Filling Hand Name Role Phone Durga Mitchell MD Primary Care Provider Encounter Details Date Type Department Care Team (Late st Contact Info) Description 10/16/2019 Procedure Pass [facility] PERIOPERATIVE DEPT [address] [place] [phone] Social History Tobacco Use Types Packs/Day Years Used Date Smoking Tobacco: Former Cigarettes Q uit: 10/16/1998 Smokeless Tobacco: Never Alcohol Use Standard Drinks/Week Comments Yes 1 (1 standard drink = 0.6 oz pur e alcohol) 1 glass of wine of every day Sex and Gender Information Value Date Recorded Sex Assigned at Not on file Legal Sex Male 10:15 AM EDT Gender Identity Not on file Sexual Orientation Not on file documented as of this encounter Plan of Treatment Not on file documented as of this encounter Visit Diagnoses Not on filedocumented in this encounter Care Teams Filling Hand Relationship Specialty Start Date End Date Durga Mitchell MD PCP - General Internal Medicine 07/01/19 documented as of this encounter Additional Source Comments The information contained in this document represents components of the legal health record. It is not the complete legal health record.[facility]
--- OUTSIDE RECORDS SUMMARY | 2025-07-25 02:53 | XMS_ITS | Encounter Summary ---
Author Organization [facility] Address [address] [place] [phone] Phone Care Team Providers Care Gut Snatcher Name Role Phone Durga Mitchell MD Primary Care Provider Encounter Details Date Type Department Care Team (Late st Contact Info) Description 08/27/2019 Procedure Pass [facility] [address] [place] [address] Social History Tobacco Use Types Packs/Day Years [...] on filedocumented in this encounter Care Teams Gut Snatcher Relationship Specialty Start Date End Date Durga Mitchell MD PCP - General Internal Medicine 07/01/19 documented as of this encounter Additional Source Comments The information contained in this document represents components of the legal health record. It is not the complete legal health record.[facility]
--- OUTSIDE RECORDS SUMMARY | 2025-07-25 02:53 | XMS_ITS | Clinical Summary ---
Author Organization [facility] Address [address] [place] [id number] Phone Care Team Providers Care Telephonic Rn Name Role Phone Durga Mitchell MD Primary Care Provider Allergies No known active allergies Medications aspirin 325 MG tablet Take 1 tablet (325 mg total) by mouth daily. 28 tablet 10/15/2019 Active docusate sodium (COLACE) 100 MG capsule Take 1 capsule (100 mg total) by mouth 2 (two) times a day. 30 capsule 10/15/2019 Active ondansetron (ZOFRAN) 4 MG tablet Take 1 tablet (4 mg total) by mouth every 8 (eight) hours as needed for nausea. 10 tablet 10/15/2019 Active ketorolac (TORADOL) 10 mg tablet Take 1 tablet (10 mg total) by mouth every 6 (six) hours as needed for pain (specific location in comments). 20 tablet 10/15/2019 Active carvedilol (COREG) 25 MG tablet Take 25 mg by mouth daily. Active oxyCODONE 5 MG immediate release tablet Take 1 tablet (5 mg total) by mouth every 4 (four) hours as needed for moderate pain. Partial fill ok 35 tablet 10/16/2019 Active Social History Tobacco Use Types Packs/Day Years Used Date Smoking Tobacco: Former Cigarettes Q uit: 10/16/1998 Smokeless Tobacco: Never Alcohol Use Standard Drinks/Week Comments Yes 1 (1 standard drink = 0.6 oz pur e alcohol) 1 glass of wine of every day Education Answer Date Recorded Are you interested in more education? Not on john e 03/23/2023 Are you concerned about learning? Not on file 03/23/2023 No 03/23/2023 No 03/23/2023 Digital Access Answer Date Recorded No 04/21/2023 No 04/21/2023 No 04/21/2023 Reliable internet access at home? Not on file 04/21/2023 Device with a working camera? Not on file Sex and Gender Information Value Date Recorded Sex Assigned at Not on file Legal Sex Male 10:15 AM EDT Gender Identity Not on file Sexual Orientation Not on file Last Filed Vital Signs Vital Sign Reading Time Taken Comments Blood Pressure 132/74 10/16/2019 4:30 PM EST Pulse 90 10/16/2019 4:30 PM EST Temperature 36.8 C (98.2 F) 10/16/2019 4:30 PM EST Respiratory Rate 16 10/16/2019 4:30 PM EST Oxygen Saturation 94% 10/16/2019 4:30 PM EST Inhaled Oxygen Concentration - - Weight 91.6 kg (202 lb) 10/16/2019 8:00 AM EST Height 172.7 cm (5' 8 ) 10/16/2019 8:00 AM EST Body Mass Index 30.71 10/16/2019 8:00 AM EST Plan of Treatment Health Maintenance Due Date Last Done Comments LIPID PANEL 1950 DEPRESSION SCREENING 1962 SMOKING Hx and SMOKELESS TOB ACCO SCREENING 1963 HEPATITIS C SCREENING 1968 COLOGUARD 1995 COLONOSCOPY 1995 COLORECTAL CANCER SCREENING 1995 FIT TEST 1995 FOBT 1995 SIGMOIDOSCOPY 1995 VIRTUAL COLONOSCOPY 1995 PNEUMOCOCCAL VACCINES (50+ y ears) (1 of 1 - PCV) 2000 ZOSTER VACCINES (1 of 2) 2000 ABDOMINAL AORTIC ANEURYSM (A AA) SCREENING 2015 COVID-19 VACCINE (2 - 2023-2 5 season) 2024 02/04/2021 INFLUENZA VACCINE (#1) 2025 Adult Td,Tdap Booster 07/28/2025 07/28/2015 RSV VACCINE (1 - 1-dose 75+ series) 2025 HEPATITIS A VACCINES Aged Out No long er eligible based on patient's age to complete this topic HIB VACCINES Aged Out No longer eligi ble based on patient's age to complete this topic MENINGOCOCCAL VACCINES (ACWY) Aged Out No longer eligible based on patient's age to complete this topic MENINGOCOCCAL VACCINES (B) Aged Out N o longer eligible based on patient's age to complete this topic Medical Devices Implanted Type Area Environmental Advisor Device Identifier Shelf Expiration Date Model / Serial / Lot Shoulder Head Humeral 36mm Joy Hollywood-Chrome Retaining Screw Sterile Reverse - [id number] Implanted:Qty: 1 on 10/16/2019 by Jean Paul Velazquez MD at [facility] STANDARD Right: Shoulder [employer]ORE 08/18/2025 508-36-10 1 / / [id number] Baseplate Glenoid 5x30mm Reverse Rsp Screw Bone Locking - [id number] Implanted:Qty: 1 on 10/16/2019 by Jean Paul Velazquez MD at [facility] Right: Acromial Process [employer] 01/16/2025 506-03-13 0 / / [id number] Rsp Bone Screw-Locking Sz 5.0mm 34mm Long Implanted:Qty: 1 on 10/16/2019 by Jean Paul Velazquez MD at [facility] Right: Shoulder 10/31/2024 / 506-03-13 4 / [id number] Rsp Bone Screw-Locking Sz 5.0mm 34mm Long Implanted:Qty: 1 on 10/16/2019 by Jean Paul Velazquez MD at [facility] Right: Acromial Process 11/09/2024 / 506-03-13 4 / [id number] Baseplate Glenoid [id number] Reverse Rsp P2 Coated - [id number] Implanted:Qty: 1 on 10/16/2019 by Jean Paul Velazquez MD at [facility] Right: Shoulder [employer]ORE 08/13/2025 508-32-20 4 / / [id number] Description:Environmental Advisor: DJ O surgical Humeral Stem, Reverse, Size 12mm X 108mm Reverse P2 Poous Coated Implanted:Qty: 1 on 10/16/2019 by Jean Paul Velazquez MD at [facility] Right: Shoulder 10/29/2024 / 530-12-10 8 / [id number] Description:Environmental Advisor: DJ O surgical Rsp Humeral Socket Insert Sz 36mm Standard +4mm Implanted:Qty: 1 on 10/16/2019 by Jean Paul Velazquez MD at [facility] Right: Shoulder 12/27/2023 / 509-00-43 6 / [id number] Insurance MEDICARE PART A & B [facility] MEDEX SUPPLEMENT MEDICARE PART A & B [place] MED[place] SUPPLEMENT MEDICARE PART A & B Member Subscriber Plan / Payer ([facility] [employer] 05/26/2017-) Name:JarrettSabinaBello Member ID:[id number] Relation to Subscriber:Self Name:JarrettLeno alfredoislaw Subscriber ID:[id number] Payer ID:[id number] Group ID:Not on file Type:Medicare Address: [facility] [employer] [address] [place] [id number] [place] MED[place] SUPPLEMENT Member Subscriber Plan / Payer ([facility] [employer] 10/26/2015-) Name:Sabina Fariaslaw Relation to Subscriber:Self Name:Jarrett Bello Payer ID:[id number] (NAIC) Type:Indemnity Address: [place] [address] MEDICARE PART A & B [place] MED[place] SUPPLEMENT MEDICARE PART A & B [place] MED[place] SUPPLEMENT MEDICARE PART A & B [facility] MEDEX SUPPLEMENT MEDICARE PART A & B [place] MED[place] SUPPLEMENT MEDICARE PART A & B [place] MED[place] SUPPLEMENT MEDICARE PART A & B [employer] MEDEX SUPPLEMENT Care Teams Telephonic Rn Relationship Specialty Start Date End Date Durga Mitchell MD PCP - General Internal Medicine 07/01/19 Additional Source Comments The information contained in this document represents components of the legal health record. It is not the complete legal health record.[facility]
--- NOTE | 2025-07-25 02:56 | PM.IMHP ---
History of Present Illness Date of Service: 07/25/25 Chief Complaint: hematuria 74-year-old male with a past medical history of HTN, HLD, AFib on Eliquis, cervical myelopathy, scoliosis, BPH; presented to the hospital with a chief complaint of hematuria. Patient initially presented to the ER on with a chief complaint of difficulty urination found to be having urinary retention; patient has had Talavera catheter placed and discharged home. Patient has had Talavera catheter removed yesterday and since then he has been having lower abdominal discomfort and has decreased urine output. Noted to have hematuria hence presented back to the ER for further evaluation. Denies any fevers. Denies any chest pain or palpitations. Denies any nausea vomiting or diarrhea. Review of all other systems is negative except mentioned above ER course: Per ER team, patient on presentation noted have abdominal discomfort; Talavera catheter was placed; patient has 1000 cc of urine retention. Patient has gross hematuria initially with slowly started to clear up. No clots noted. Patient was febrile in the ER. Urinalysis abnormal consistent with UTI. Given ceftriaxone. [facility] Social History Alcohol intake: current Alcohol intake frequency: a few times a month Alcohol type: beer Advance Directives: No Advance Directives Information Provided: Yes Do you have a plan to hurt others: No Plan Meds Allergies Allergy/AdvReac Type Severity Reaction Status Date / Time No Known Allergies Allergy Verified 07/25/25 00:00 Active Medications: Current Medications Acetaminophen (Acetaminophen 325 Mg Tablet) 650 mg PO Q6H PRN PRN Reason: Pain, Mild 1-3,fever,headache Calcium Carbonate (Calcium Carbonate 750 Mg Tab.Chew) 750 mg PO Q4H PRN PRN Reason: Heartburn Ceftriaxone Sodium (Ceftriaxone Sodium 1 Gm Vial) 1 gm IVPUSH Q24H [facility] Hydromorphone HCl (Hydromorphone Hcl 0.5 Mg/0.5 Ml Syringe) 0.5 mg IVPUSH Q4H PRN; Protocol PRN Reason: Pain, Severe (Pain Scale 7-10) Lactated Ringer's (Lr) 1,000 mls @ 100 mls/hr IVCONT .Q10H [facility] Magnesium Hydroxide (Milk Of Magnesia 30 Ml Oral.Susp) 30 ml PO DAILY PRN PRN Reason: Constipation Melatonin (Melatonin 3 Mg Tablet) 6 mg PO BEDTIME PRN PRN Reason: Insomnia Sodium Chloride (0.9 % Sodium Chloride Flush 3 Ml Syringe) 3 ml IVFLUSH QSHIFT GANESH Physical Exam Vital Signs and Narrative: Vital Signs: Last Vital Signs Temp 99.6 F 07/25/25 01:31 Pulse 101 H 07/25/25 01:31 Resp 20 07/25/25 01:31 BP 133/71 07/25/25 02:02 Pulse Ox 98 07/25/25 00:27 O2 Del Method Room Air 07/25/25 00:27 BMI result Body Mass Index 30.5 Gen: Appears be in no acute distress HEENT: NCAT, Moist mucosa. Pulmonary: Vesicular breath sounds, fair air entry CVS: Normal S1-S2 Abdomen: BS+, Soft, Nontender Extremities: Warm well perfused Neuro: Alert and awake. Results Labs 07/25/25 00:28 07/25/25 00:28 Labs: Laboratory Results - last 24 hr 07/25/25 00:28 MCV 88.7 MCH 31.2 MCHC 35.1 RDW 12.7 Plt Count 247 D MPV 9.5 Immature Gran % (Auto) 0.4 Neut % (Auto) 76.3 H Lymph % (Auto) 12.8 L [place] % (Auto) 9.3 Eos % (Auto) 1.0 Baso % (Auto) 0.2 Lymph # (Auto) 1.8 [place] # (Auto) 1.3 H Eos # (Auto) 0.1 Baso # (Auto) 0.0 Abs Immat Gran (auto) 0.05 H Absolute Neuts (auto) 10.7 H Absolute Nucleated RBC 0.000 Nucleated RBC % (auto) 0.0 Anion Gap 16 Estim Creat Clear Calc 68.8 Estimated GFR > 60 Random Glucose 111 Lactic Acid 1.3 Calcium 9.3 D Magnesium 1.9 Urine Color Straw Urine Appearance Hazy Urine pH 6.0 Ur Specific [place] <= 1.005 Urine Protein 100 (2+) H Urine Glucose (UA) Negative Urine Ketones Negative Urine Blood Large (3+) H Urine Nitrite Positive H Ur Leukocyte Esterase Large (3+) H Urine RBC >20 H Urine WBC >50 H Ur Squamous Epith Cells 0-2 Urine Bacteria 4+ Hyaline Casts 0-2 Assessment and Plan (1) Acute urinary retention: Status: Acute Plan 74-year-old male with a past medical history of HTN, HLD, AFib on Eliquis, cervical myelopathy, scoliosis, BPH; presented to the hospital with a chief complaint of hematuria. Admitted for following Gross hematuria: Urinary retention: UTI: Patient has history of BPH. Talavera catheter was placed in the ER. Patient was retaining 1000 cc of urine. No blood clots noted. Patient urine is gradually clearing up. Continue gentle IV fluids If noticed any clots we will consider CBI. Urology consult Continue ceftriaxone Follow-up cultures Flomax CT abdomen pelvis pending Hypertension: Blood pressure normal side. Resume home carvedilol eventually. Atrial fibrillation: Patient's home Eliquis on hold until cleared by Urology. DVT prophylaxis: SCD boots Code status: Full code Quality Stroke Does the patient have a stroke diagnosis?: No VTE Prior VTE?: No VTE Risk Level:: Medical - moderate - high VTE Device Contraindication: N/A - Device Ordered VTE Drug Contraindication: Treatment Not Indicated
[2025-07-25] MEDS: Lactated Ringers 1,000 ML 100 ML IVCONT ×3 (03:11→23:10)
--- NOTE | 2025-07-25 03:16 | PC.NURSE ---
spouse went home for the night. Pt given maintenance LR running at 100 mL/hr
--- NOTE | 2025-07-25 05:15 | PC.NURSE ---
1L of fruit punch colored urine emptied from gee bag.
--- NOTE | 2025-07-25 05:57 | PC.NURSE ---
pt noted to be de stating at 77%, placed on nasal canula 2L, 02 99%
[2025-07-25 06:25] LABS: MANUAL DIFF FLAG NO
[2025-07-25 06:44] LABS: Alanine Aminotransferase 12 U/L (0-40); Albumin Level 3.4 g/dL (3.5-5.0); Alkaline Phosphatase 85 U/L (39-117); Anion Gap 10 (12-20); Aspartate Amino Transferase 21 U/L (5-37); Blood Urea Nitrogen 18 mg/dL (9-16); Calcium 8.1 mg/dL (8.4-10.2); Carbon Dioxide 25 mmol/L (22-29); Chloride 110 mmol/L (96-108); Creatinine Clr Calc Pharmacy 78.8; Estimated Glomerular Filt Rate > 60; Hematocrit 31.9 % (42.0-52.0); Hemoglobin 10.8 g/dl (14.0-18.0); Imm Gran Abs Auto 0.04 X10*3/uL (0.00-0.03); Imm Gran Pct Auto 0.4 % (0.0-0.4); Lymphocytes Absolute Auto 1.8 X10*3/uL (1.2-4.9); Mean Corpuscular HGB Conc 33.9 g/dl (31.0-36.0); Mean Corpuscular Hemoglobin 30.9 pg (27.0-33.0); Mean Corpuscular Volume 91.1 fL (80.0-98.0); NRBC Abs Auto 0.000 X10*3/uL (0.0-0.012); NRBC Pct Auto 0.0 /100WBC (0.0-0.2); Platelet Count 188 X10*3/uL (160-400); Potassium 3.8 mmol/L (3.3-5.1); Red Blood Count 3.50 X10*6/uL (4.60-5.80); Sodium 141 mmol/L (135-145); Total Protein 5.7 g/dL (6.5-8.0); White Blood Count 10.9 X10*3/uL (4.8-10.8)
--- NOTE | 2025-07-25 08:22 | PHA.MEDREC ---
Pharmacy Consult ? Medication Reconciliation Pharmacy has completed the medication reconciliation.Med rec complete, spoke to patient and compared with pharmacy claim history.
--- NOTE | 2025-07-25 11:04 | HO.PM.IMPN ---
Subjective Subjective Date of Service: 07/25/25 Interval History: Seen and evaluated in his room where pt is resting comfortably in bed Doing much better, no abdominal pain Denies lightheadedness or dizziness Overall feeling much better than when he presented to the ED Review of Systems Review of Systems: Yes all other systems are reviewed and are negative Physical Exam Exam: Exam: General: AOx3, no acute distress Resp: CTA bilaterally CVS: S1, S2, RRR GI: +BS, NT, no distention Skin: Warm, dry : Talavera catheter in place draining clear urine without clots. [place] color urine in the collection bag Neuro: Cranial nerves II-XII grossly intact bilaterally. Motor grossly intact bilaterally Extremities: No edema Psych: Appropriate affect Vital Signs: Vital Signs: Last Vital Signs Temp 98.4 F 07/25/25 08:00 Pulse 83 07/25/25 08:00 Resp 14 07/25/25 08:00 BP 128/69 07/25/25 08:00 Pulse Ox 99 07/25/25 08:00 O2 Del Method Room Air 07/25/25 08:00 BMI result Body Mass Index 30.5 Objective Data Active Medications Acetaminophen (Acetaminophen 325 Mg Tablet) 650 mg PO Q6H PRN PRN Reason: Pain, Mild 1-3,fever,headache Calcium Carbonate (Calcium Carbonate 750 Mg Tab.Chew) 750 mg PO Q4H PRN PRN Reason: Heartburn Ceftriaxone Sodium (Ceftriaxone Sodium 1 Gm Vial) 1 gm IVPUSH Q24H [facility] Hydromorphone HCl (Hydromorphone Hcl 0.5 Mg/0.5 Ml Syringe) 0.5 mg IVPUSH Q4H PRN; Protocol PRN Reason: Pain, Severe (Pain Scale 7-10) Lactated Ringer's (Lr) 1,000 mls @ 100 mls/hr IVCONT .Q10H [facility] Last Admin: 07/25/25 03:11 Dose: 100 mls/hr Documented By: BEBE Magnesium Hydroxide (Milk Of Magnesia 30 Ml Oral.Susp) 30 ml PO DAILY PRN PRN Reason: Constipation Melatonin (Melatonin 3 Mg Tablet) 6 mg PO BEDTIME PRN PRN Reason: Insomnia Sodium Chloride (0.9 % Sodium Chloride Flush 3 Ml Syringe) 3 ml IVFLUSH QSHIFT [facility] Last Admin: 07/25/25 09:21 Dose: Not Given Documented By: TRACIE Non-Admin Reason: IV Running Tamsulosin HCl (Tamsulosin Hcl 0.4 Mg Capsule) 0.4 mg PO DAILY [facility]AN[facility] Last Admin: 07/25/25 09:25 Dose: 0.4 mg Documented By: TRACIE Labs 07/25/25 06:00 07/25/25 06:00 Labs: Laboratory Results - last 24 hr 07/25/25 07/25/25 00:28 06:00 MCV 88.7 91.1 MCH 31.2 30.9 MCHC 35.1 33.9 RDW 12.7 12.8 Plt Count 247 D 188 MPV 9.5 10.0 Immature Gran % (Auto) 0.4 0.4 Neut % (Auto) 76.3 H 71.3 Lymph % (Auto) 12.8 L 16.8 L [place] % (Auto) 9.3 10.4 Eos % (Auto) 1.0 0.8 Baso % (Auto) 0.2 0.3 Lymph # (Auto) 1.8 1.8 [place] # (Auto) 1.3 H 1.1 Eos # (Auto) 0.1 0.1 Baso # (Auto) 0.0 0.0 Abs Immat Gran (auto) 0.05 H 0.04 H Absolute Neuts (auto) 10.7 H 7.8 Absolute Nucleated RBC 0.000 0.000 Nucleated RBC % (auto) 0.0 0.0 Anion Gap 16 10 L Estim Creat Clear Calc 68.8 78.8 Estimated GFR > 60 > 60 Random Glucose 111 113 Lactic Acid 1.3 Calcium 9.3 D 8.1 L D Magnesium 1.9 Total Bilirubin 0.4 AST 21 ALT 12 Alkaline Phosphatase 85 Total Protein 5.7 L Albumin 3.4 L Urine Color Straw Urine Appearance Hazy Urine pH 6.0 Ur Specific [place] <= 1.005 Urine Protein 100 (2+) H Urine Glucose (UA) Negative Urine Ketones Negative Urine Blood Large (3+) H Urine Nitrite Positive H Ur Leukocyte Esterase Large (3+) H Urine RBC >20 H Urine WBC >50 H Ur Squamous Epith Cells 0-2 Urine Bacteria 4+ Hyaline Casts 0-2 Assessment and Plan (1) Acute urinary retention: Status: Acute (2) Urinary tract infection: Status: Acute (3) Sepsis: Status: Acute Plan 74-year-old male with a past medical history of HTN, HLD, AFib on Eliquis, cervical myelopathy, scoliosis, BPH; presented to the hospital with a chief complaint of hematuria. Admitted for following Urinary retention with gross hematuria Patient has history of BPH. Talavera catheter was placed in the ER. Patient was retaining 1000 cc of urine. No blood clots noted. Patient urine is gradually clearing up; currently draining clear urine CT abdomen pelvis negative for acute abnormality, but showed large prostate and bladder decompressed with Talavera catheter in place. Continue gentle IV fluids If noticed any clots we will consider CBI Urology consult Flomax H&H slight dip 13.8-->10.8 Follow CBC Acute UTI with sepsis UA positive Met sepsis with fever, tachycardia, tachypnea, and leukocytosis; lactic acid WNL Was treated with IVF and started on broad-spectrum antibiotics in the ED Continue with ceftriaxone, day 2 Follow urine culture Hypertension: Blood pressure normal side. Resume home carvedilol eventually. Atrial fibrillation: Patient's home Eliquis on hold until cleared by Urology. DVT prophylaxis: SCD boots due to hematuria Code status: Full code Quality Stroke Does the patient have a stroke diagnosis?: No VTE Prior VTE?: No VTE Risk Level:: Medical - moderate - high VTE Device Contraindication: N/A - Device Ordered VTE Drug Contraindication: Treatment Not Indicated
--- NOTE | 2025-07-25 14:58 | PC.NURSE ---
Alcohol consumption: pt stated that he drinks 3-4 drinks per day , wine or vodka , reported that he has more than 6 drinks per day few time per year. Refused any addiction medicine consultation , refused ay medication to help to quit drinking . Family stated that pt drinks more than he reported .
[2025-07-25] MEDS: 0.9 % Sodium Chloride Flush 3 ML SYRINGE IVFLUSH (19:45)
[2025-07-26 03:30] VITALS: BP 131/61; PULSE 96; RESP 16; TEMP 37.4; O2SAT 93
[2025-07-26 08:00] VITALS: BP 139/72; PULSE 82; RESP 18; TEMP 37.2; O2SAT 94
[2025-07-26 08:02] LABS: Hematocrit 33.1 % (42.0-52.0); Hemoglobin 11.6 g/dl (14.0-18.0); Mean Corpuscular HGB Conc 35.0 g/dl (31.0-36.0); Mean Corpuscular Hemoglobin 31.4 pg (27.0-33.0); Mean Corpuscular Volume 89.5 fL (80.0-98.0); NRBC Abs Auto 0.000 X10*3/uL (0.0-0.012); NRBC Pct Auto 0.0 /100WBC (0.0-0.2); Platelet Count 192 X10*3/uL (160-400); Red Blood Count 3.70 X10*6/uL (4.60-5.80); White Blood Count 12.2 X10*3/uL (4.8-10.8)
[2025-07-26] MEDS: Milk of Magnesia 30 ML ORAL.SUSP PO (08:15)
--- NOTE | 2025-07-26 10:06 | MHC.CM.PN ---
IMM 07/26/25, Pt. lives with his , he does not use home health services, or DME. PCP confirmed: Durga Mitchell, Pt. does not have HCP and declined to complete form at this time. to transport him home at DC, DCP: home, self care. CM to follow for DC needs.
[2025-07-26] MEDS: Lactated Ringers 1,000 ML 100 ML IVCONT ×2 (10:57→21:12)
--- NOTE | 2025-07-26 11:45 | P.PNIM_ITS ---
Subjective Subjective Date of Service: 07/26/25 Interval History: No acute events overnight No abd pain, no hematuria No fevers Feels good, wants to go home without catheter Reports he never started to take Flomax outpatient as he wasn't able to picker/puller the prescription Review of Systems Review of Systems: Yes all other systems are reviewed and are negative Physical Exam 2 Exam: Exam: General: AOx3, no acute distress Resp: CTA bilaterally CVS: S1, S2, RRR GI: +BS, NT, no distention Skin: Warm, dry : Talavera catheter in place, draining clear straw-colored urine Neuro: Cranial nerves II-XII grossly intact bilaterally. Motor grossly intact bilaterally Extremities: No edema Psych: Appropriate affect Vital Signs: Vital Signs: Last Vital Signs Temp 98.9 F 07/26/25 08:00 Pulse 82 07/26/25 08:00 Resp 18 07/26/25 08:00 BP 139/72 07/26/25 08:00 Pulse Ox 94 07/26/25 08:00 O2 Del Method Room Air 07/26/25 08:00 BMI result Body Mass Index 32.6 Objective Data Active Medications Acetaminophen (Acetaminophen 325 Mg Tablet) 650 mg PO Q6H PRN PRN Reason: Pain, Mild 1-3,fever,headache Atorvastatin Calcium (Atorvastatin Calcium 20 Mg Tablet) 20 mg PO BEDTIME REPLACED BY [facility] Last Admin: 07/25/25 19:45 Dose: 20 mg Documented By: LIV Calcium Carbonate (Calcium Carbonate 750 Mg Tab.Chew) 750 mg PO Q4H PRN PRN Reason: Heartburn Carvedilol (Carvedilol 25 Mg Tablet) 25 mg PO BID REPLACED BY [facility]; Protocol Last Admin: 07/26/25 08:09 Dose: 25 mg Documented By: MEET Ceftriaxone Sodium (Ceftriaxone Sodium 1 Gm Vial) 1 gm IVPUSH Q24H [facility] Last Admin: 07/26/25 02:36 Dose: 1 gm Documented By: LIV Hydrochlorothiazide (Hydrochlorothiazide 12.5 Mg Tablet) 12.5 mg PO DAILY REPLACED BY [facility]; Protocol Last Admin: 07/26/25 08:09 Dose: 12.5 mg Documented By: MEET Hydromorphone HCl (Hydromorphone Hcl 0.5 Mg/0.5 Ml Syringe) 0.5 mg IVPUSH Q4H PRN; Protocol PRN Reason: Pain, Severe (Pain Scale 7-10) Lactated Ringer's (Lr) 1,000 mls @ 100 mls/hr IVCONT .Q10H REPLACED BY [facility] Last Admin: 07/26/25 10:57 Dose: 100 mls/hr Documented By: MEET Losartan Potassium (Losartan Potassium 50 Mg Tablet) 100 mg PO BEDTIME REPLACED BY [facility]; Protocol Last Admin: 07/25/25 19:45 Dose: 100 mg Documented By: LIV Magnesium Hydroxide (Milk Of Magnesia 30 Ml Oral.Susp) 30 ml PO DAILY PRN PRN Reason: Constipation Last Admin: 07/26/25 08:15 Dose: 30 ml Documented By: MEET Melatonin (Melatonin 3 Mg Tablet) 6 mg PO BEDTIME PRN PRN Reason: Insomnia Omeprazole (Omeprazole 20 Mg Capsule.Dr) 20 mg PO DAILY@0630 REPLACED BY [facility] Last Admin: 07/26/25 06:00 Dose: 20 mg Documented By: LIV Sodium Chloride (0.9 % Sodium Chloride Flush 3 Ml Syringe) 3 ml IVFLUSH QSHIFT REPLACED BY [facility] Last Admin: 07/26/25 08:10 Dose: Not Given Documented By: MEET Non-Admin Reason: IV Running Tamsulosin HCl (Tamsulosin Hcl 0.4 Mg Capsule) 0.4 mg PO DAILY REPLACED BY [facility] Last Admin: 07/26/25 08:09 Dose: 0.4 mg Documented By: MEET Labs 07/26/25 06:44 07/25/25 06:00 Labs: Laboratory Results - last 24 hr 07/26/25 06:44 MCV 89.5 MCH 31.4 MCHC 35.0 RDW 12.7 Plt Count 192 MPV 9.8 Absolute Nucleated RBC 0.000 Nucleated RBC % (auto) 0.0 Microbiology Microbiology Results: Microbiology 07/25/25 Unknown Urine Culture - Preliminary Urine clean catch - Clean Catch Midstream Gram negative laly 07/25/25 00:27 Blood Culture - Preliminary Blood - Venous No growth after 24 hours. 07/25/25 00:27 Blood Culture - Preliminary Blood - Venous No growth after 24 hours. Assessment and Plan (1) Acute urinary retention: Status: Acute (2) Urinary tract infection: Status: Acute Plan 74-year-old male with a past medical history of HTN, HLD, AFib on Eliquis, cervical myelopathy, scoliosis, BPH; presented to the hospital with a chief complaint of hematuria. Admitted for the following Urinary retention with gross hematuria Patient has history of BPH and recent urinary retention with Talavera placed on 07/13; removed on 07/24 with recurrent rentention; did not picker/puller prescrition for tamsulosin Talavera catheter was placed in the ER. Patient was retaining 1000 cc of urine. No blood clots noted; currently draining clear urine: CBI not indicated CT abdomen pelvis negative for acute abnormality, but showed large prostate and bladder decompressed with Talavera catheter in place. Urology consult Flomax H&H stable Acute UTI with sepsis UA positive Met sepsis with fever, tachycardia, tachypnea, and leukocytosis; lactic acid WNL Was treated with IVF and started on broad-spectrum antibiotics in the ED Continue with ceftriaxone, day 3 Follow urine culture, showing gram negative rods Hypertension: Blood pressure normal side. Resume home carvedilol eventually. Atrial fibrillation: Resume Eliquis this evening as hematuria has been clear since yesterday DVT prophylaxis: Eliquis Code status: Full code Quality Stroke Does the patient have a stroke diagnosis?: No VTE Prior VTE?: No VTE Risk Level:: Medical - moderate - high VTE Device Contraindication: N/A - Device Ordered VTE Drug Contraindication: Treatment Not Indicated
[2025-07-26 12:00] VITALS: BP 117/58; PULSE 83; RESP 18; TEMP 36.1; O2SAT 94
[2025-07-26 15:21] VITALS: BP 118/59; PULSE 84; RESP 20; TEMP 37.2; O2SAT 98
[2025-07-26 19:33] VITALS: BP 118/62; PULSE 64; RESP 20; TEMP 37.3; O2SAT 96
--- NOTE | 2025-07-26 19:40 | PM.UROCN ---
History of Present Illness Consult details Consult date: 07/26/25 Narrative: 74-year-old male with a past medical history of HTN, HLD, AFib on Eliquis, cervical myelopathy, scoliosis, BPH; presented to the hospital with a chief complaint of hematuria. Patient initially presented to the ER on with a chief complaint of difficulty urination found to be having urinary retention; patient has had Gee catheter placed and discharged home. Patient has had Gee catheter removed yesterday and since then he has been having lower abdominal discomfort and has decreased urine output. Noted to have hematuria hence presented back to the ER for further evaluation. [facility] Social History Social History Household Members: Spouse Housing: House Do you presently have visiting nurse or other home services: No Alcohol intake: current Alcohol intake frequency: a few times a month Alcohol type: beer Patient Tobacco Use Status: Former Tobacco user Tobacco use type: Cigarette service: No Meds Allergies Allergy/AdvReac Type Severity Reaction Status Date / Time No Known Allergies Allergy Verified 07/25/25 00:00 Active Medications: Current Medications Acetaminophen (Acetaminophen 325 Mg Tablet) 650 mg PO Q6H PRN PRN Reason: Pain, Mild 1-3,fever,headache Apixaban (Apixaban 5 Mg Tablet) 5 mg PO BID [facility] Atorvastatin Calcium (Atorvastatin Calcium 20 Mg Tablet) 20 mg PO BEDTIME [facility] Last Admin: 07/25/25 19:45 Dose: 20 mg Calcium Carbonate (Calcium Carbonate 750 Mg Tab.Chew) 750 mg PO Q4H PRN PRN Reason: Heartburn Carvedilol (Carvedilol 25 Mg Tablet) 25 mg PO BID GANESH; Protocol Last Admin: 07/26/25 08:09 Dose: 25 mg Ceftriaxone Sodium (Ceftriaxone Sodium 1 Gm Vial) 1 gm IVPUSH Q24H [facility]ANESH Last Admin: 07/26/25 02:36 Dose: 1 gm Hydrochlorothiazide (Hydrochlorothiazide 12.5 Mg Tablet) 12.5 mg PO DAILY [facility]; Protocol Last Admin: 07/26/25 08:09 Dose: 12.5 mg Hydromorphone HCl (Hydromorphone Hcl 0.5 Mg/0.5 Ml Syringe) 0.5 mg IVPUSH Q4H PRN; Protocol PRN Reason: Pain, Severe (Pain Scale 7-10) Lactated Ringer's (Lr) 1,000 mls @ 100 mls/hr IVCONT .Q10H [facility] Last Admin: 07/26/25 10:57 Dose: 100 mls/hr Losartan Potassium (Losartan Potassium 50 Mg Tablet) 100 mg PO BEDTIME [facility]; Protocol Last Admin: 07/25/25 19:45 Dose: 100 mg Magnesium Hydroxide (Milk Of Magnesia 30 Ml Oral.Susp) 30 ml PO DAILY PRN PRN Reason: Constipation Last Admin: 07/26/25 08:15 Dose: 30 ml Melatonin (Melatonin 3 Mg Tablet) 6 mg PO BEDTIME PRN PRN Reason: Insomnia Omeprazole (Omeprazole 20 Mg Capsule.Dr) 20 mg PO DAILY@629 [facility] Last Admin: 07/26/25 06:00 Dose: 20 mg Sodium Chloride (0.9 % Sodium Chloride Flush 3 Ml Syringe) 3 ml IVFLUSH QSHIFT [facility] Last Admin: 07/26/25 17:51 Dose: Not Given Tamsulosin HCl (Tamsulosin Hcl 0.4 Mg Capsule) 0.4 mg PO DAILY [facility] Last Admin: 07/26/25 08:09 Dose: 0.4 mg Home Medications ?Medication ?Instructions ?Recorded ?Confirmed ?Last Taken ?Type apixaban 5 mg tablet (Eliquis) 5 mg PO BID 07/25/25 07/25/25 Unknown History carvedilol 25 mg tablet 25 mg PO BID 07/25/25 07/25/25 07/24/25 History hydrochlorothiazide 12.5 mg tablet 12.5 mg PO DAILY 07/25/25 07/25/25 07/24/25 History losartan 100 mg tablet 100 mg PO BEDTIME 07/25/25 07/25/25 07/24/25 History omeprazole 20 mg capsule,delayed 20 mg PO DAILY@0630 07/25/25 07/25/25 07/24/25 History release simvastatin 40 mg tablet 40 mg PO BEDTIME 07/25/25 07/25/25 07/24/25 History tamsulosin 0.4 mg capsule 0.4 mg PO BEDTIME 07/25/25 07/25/25 07/24/25 History Physical Exam Vital Signs: Vital Signs: Last Vital Signs Temp 99.0 F 07/26/25 15:21 Pulse 84 07/26/25 15:21 Resp 20 07/26/25 15:21 BP 118/59 L 07/26/25 15:21 Pulse Ox 98 07/26/25 15:21 O2 Del Method Room Air 07/26/25 15:21 BMI result Body Mass Index 32.6 Results Labs 07/26/25 06:44 07/25/25 06:00 Labs: Abnormal lab results 07/26/25 Range/Units 06:44 WBC 12.2 H (4.8-10.8) X10*3/uL RBC 3.70 L (4.60-5.80) X10*6/uL Hgb 11.6 L (14.0-18.0) g/dl Hct 33.1 L (42.0-52.0) % Short CBC 07/26/25 Range/Units 06:44 WBC 12.2 H (4.8-10.8) X10*3/uL Hgb 11.6 L (14.0-18.0) g/dl Hct 33.1 L (42.0-52.0) % Plt Count 192 (160-400) X10*3/uL Urine 07/25/25 Range/Units 00:28 Urine Color Straw Urine Appearance Hazy Urine pH 6.0 (5.0-9.0) Ur Specific B[place]on <= 1.005 (1.005-1.025) Urine Protein 100 (2+) H (Neg-Trace) mg/dL Urine Glucose (UA) Negative (Negative) mg/dL Imaging Abdomen CT scan report/results: report reviewed and image reviewed CT scan - pelvis: report reviewed and image reviewed Additional studies: Date of Service: 07/25/25 CLINICAL HISTORY: obstructive uropathy?sun hematuria renal stones? CT abdomen and pelvis without contrast Comparison: CT/SR - CT ABDOMEN PELVIS WITH IV CONTRAST - 07/13/25 11:30 EDT Findings: There is unchanged mild subpleural scarring/fibrosis in the lung bases. There is a small hepatic cyst. The gallbladder is contracted, but otherwise unremarkable. The pancreas, spleen, adrenal glands, and kidneys are unremarkable. There is no urolithiasis or hydronephrosis. The prostate is enlarged. The bladder is decompressed with a Gee catheter. The appendix is normal. There is mild diverticulosis in the left hemicolon. There is a duodenal diverticulum. The remainder of the gastrointestinal tract is unremarkable. There is no free fluid or free air. There are no enlarged lymph nodes. The aorta is normal in diameter. There are degenerative changes in the lumbar spine. There is no fracture or suspicious lytic or sclerotic lesion. IMPRESSION: 1. No acute abnormality in the abdomen or pelvis. 2. Large prostate. Bladder is decompressed with a Gee catheter. Assessment and Plan (1) Acute urinary retention: Status: Acute (2) Urinary tract infection: Status: Resolved (3) Gross hematuria: Status: Resolved Plan On IV abx cont gee, tamsulosin recommend proscar 5 mg daily dc with gee out patient follow up Procedures Date of Service Date of Service: 08/08/25
[2025-07-26 21:08] VITALS: BP 112/69; PULSE 87
[2025-07-26] MEDS: 0.9 % Sodium Chloride Flush 3 ML SYRINGE IVFLUSH (23:57)
[2025-07-27] VITALS: BP 124/60; PULSE 87; RESP 16; TEMP 36.8; O2SAT 93
[2025-07-27 04:00] VITALS: BP 149/61; PULSE 83; RESP 16; TEMP 36.1; O2SAT 95
[2025-07-27 07:46] VITALS: BP 147/76; PULSE 73; RESP 18; TEMP 36.4; O2SAT 97
--- NOTE | 2025-07-27 11:42 | PM.DS ---
DS: Providers Provider Date of Service: 07/27/25 Date of admission: 07/25/25 02:53 Date of discharge: 07/27/25 Primary care physician: Durga Mitchell MD Consults: 07/25/25 02:55 Consult to Urology Routine Consulting Provider[place] [facility] [place] [facility] Reason for consultation: Hematuria DS: Diagnosis Discharge Diagnosis (1) Acute urinary retention: Status: Acute (2) Urinary tract infection: Status: Acute (3) Gross hematuria: Status: Acute DS: Summary Hospital Course Hospital Course: From admission HPI: Date of Service: 07/25/25 Chief Complaint: hematuria 74-year-old male with a past medical history of HTN, HLD, AFib on Eliquis, cervical myelopathy, scoliosis, BPH; presented to the hospital with a chief complaint of hematuria. Patient initially presented to the ER on with a chief complaint of difficulty urination found to be having urinary retention; patient has had Talavera catheter placed and discharged home. Patient has had Talavera catheter removed yesterday and since then he has been having lower abdominal discomfort and has decreased urine output. Noted to have hematuria hence presented back to the ER for further evaluation. Denies any fevers. Denies any chest pain or palpitations. Denies any nausea vomiting or diarrhea. Review of all other systems is negative except mentioned above ER course: Per ER team, patient on presentation noted have abdominal discomfort; Talavera catheter was placed; patient has 1000 cc of urine retention. Patient has gross hematuria initially with slowly started to clear up. No clots noted. Patient was febrile in the ER. Urinalysis abnormal consistent with UTI. Given ceftriaxone. Hospital course Pt was admitted to the hospital for acute UTI with sepsis in the setting of recurrent urinary retention complicated by hematuria. Pt was treated with IV ceftriaxone with good respons; UA culture growing Klebsiella oxytoca susceptible to ceftriaxone. Pt will be discharged home on cefuroxime 250 mg b.i.d. x4 days. For recurrent urinary retention a new Talavera catheter was placed in the ED. for hematuria patient's Eliquis was initially held; hematuria spontaneously and quickly resolved. Pt not noted to have any clots and did not receive CBI. Has been draining clear yellow urine for the past 2 days. Pt seen and evaluated by Urology who suggested starting on finasteride. Pt will be discharged home with Talavera catheter in place and set to have outpatient voiding trial in Urology office sometime in the next 2-4 weeks. Pt should resume all other home medications. Details concerning rest of hospital stay as listed below. Urinary retention with gross hematuria Patient has history of BPH and recent urinary retention with Talavera placed on 07/13; removed on 07/24 with recurrent retention; did not pecan picker prescrition for tamsulosin outpatient Talavera catheter was placed in the ER, continue at home until removed by urology outpatient Patient was retaining 1000 cc of urine. No blood clots noted; hematuria spontaneoulsy resolved; currently draining clear urine: CBI not indicated CT abdomen pelvis negative for acute abnormality, but showed large prostate and bladder decompressed with Talavera catheter in place. Urology consulted, recommend finasteride 5 mg daily and continue tamsulosin 0.4 mg at bedtime Outpatient urology voiding trial in 2-4 weeks; call to set up appointment Acute UTI with sepsis UA positive Met sepsis with fever, tachycardia, tachypnea, and leukocytosis; lactic acid WNL Was treated with IVF and started on broad-spectrum antibiotics in the ED Treated with ceftriaxone x3 days; will be discharged on cefuroxime 250 mg b.i.d. x4 days Urine culture growing Klebsiella oxytoca Paroxysmal AFib Continue Eliquis, carvedilol Hypertension: Continue carvedilol, hydrochlorothiazide, losartan HLD Continue simvastatin Time Attestation Discharge Coordination Time (in mins): 35 Quality: Safe Use of Opioids Does Pt have an Active Cancer Diagnosis on the Problem List?: No Quality: Stroke Does the patient have a stroke diagnosis?: No Physical Exam Exam: Exam: General: AOx3, no acute distress Resp: CTA bilaterally CVS: S1, S2, RRR GI: +BS, NT, no distention : Talavera catheter in place, draining clear straw-colored urine Skin: Warm, dry Neuro: Cranial nerves II-XII grossly intact bilaterally. Motor grossly intact bilaterally Extremities: No edema Psych: Appropriate affect Vital Signs: Vital Signs: Last Vital Signs Temp 97.5 F 07/27/25 07:46 Pulse 73 07/27/25 07:46 Resp 18 07/27/25 07:46 BP 147/76 H 07/27/25 07:46 Pulse Ox 97 07/27/25 07:46 O2 Del Method Room Air 07/27/25 07:46 BMI result Body Mass Index 32.6 DS: Data Data Completed and Pending Labs on day of discharge: Preliminary micro results at discharge 07/25/25 00:27 Blood Culture - Preliminary Blood - Venous No growth after 48 hours. 07/25/25 00:27 Blood Culture - Preliminary Blood - Venous No growth after 48 hours. Discharge Plan Discharge Anticipated Discharge Date/Time: 07/27/25 11:15 Patient Disposition: Home, Self-Care Discharge Diagnosis: Acute UTI with sepsis [place] [facility] [place] [facility] [place] Group, [place]rology] - 1 Week Referral Note: Pt with recurrent acute urinary retention; follows with urology in [place] but would like to switch practices [place] [facility] [place] Durga Mitchell MD [Primary Care Provider, Internal Medicine] - 1 Week Discharge Medications: New finasteride 5 mg tablet 5 mg PO DAILY Qty: 90 0RF Rx Instructions: Take one tablet daily cefuroxime axetil 250 mg tablet 250 mg PO BID Qty: 11 0RF Rx Instructions: Take 1 tablet twice a day for the next 5 days, starting the evening of 07/27 and ending the evening of 08/01. Continued tamsulosin 0.4 mg Capsule 0.4 mg PO BEDTIME omeprazole 20 mg Capsule,Delayed Release(Dr/Ec) 20 mg PO DAILY@0630 simvastatin 40 mg Tablet 40 mg PO BEDTIME carvedilol 25 mg Tablet 25 mg PO BID Rx Instructions: must administer with a meal/food hydrochlorothiazide 12.5 mg Tablet 12.5 mg PO DAILY losartan 100 mg Tablet 100 mg PO BEDTIME Eliquis 5 mg Tablet 5 mg PO BID Discharge Orders: Discharge Order (Routine); Ordered 07/27/25 Ordered By: Miguel Steinberg Activity on Discharge: As tolerated Stand Alone Forms: Patient Portal Discharge page Print Language: Serbian Care Plan Goals: See below Health Concerns: Acute urinary retention Hematuria UTI Sepsis BPH Plan of Treatment: You were admitted to the hospital for acute urinary tract infection with sepsis in the setting of recurrent urinary retention with hematuria. You were treated with IV antibiotics for the UTI and will be discharged home on oral antibiotics. For recurrent urinary retention a new Talavera catheter was placed, and you were seen and evaluated by Urology who suggested you take tamsulosin and finasteride, and keep the Talavera catheter in until voiding trial at Urology office sometime in 2-4 weeks. For hematuria, likely caused by UTI or irritation from Talavera catheter complicated by being on Eliquis. Hematuria spontaneously resolved after a short period of time and your Eliquis was resumed. -- for UTI take cefuroxime 250 mg twice a day with food for the next 4 days, started in the evening of 07/27 in ending the evening of 08/01. -- for acute urinary retention take tamsulosin 0.4 mg at bedtime; you will also be prescribed finasteride 5 mg daily -- keep Talavera catheter in place for now and practice catheter care; contact either your own urologist or [place]rology [place] [facility] [place] outpatient voiding trial, likey sometime in the next 2-4 weeks due to recurrent urinary retention -- continue all of your other home medications, including Eliquis Assessment: See discharge summary
[2025-07-27 12:00] VITALS: BP 120/68; PULSE 80; RESP 18; TEMP 36.2; O2SAT 94
--- NOTE | 2025-07-27 12:09 | MHC.CM.PN ---
Pt is medically cleared for discharge home self-care, his will transport him home today.
== END 2025-07-27 12:56 | disposition home or self-care (01) | DRG 690 ==
LOC: HO.ED 07-25 02:51 → HO.EDOVER 07-25 03:04 → HO.IMC 07-25 12:29
PROVIDERS: Physician Assistant Medical; Admitting Provider Hospitalist; Emergency Provider Emergency Medicine; PCP Internal Medicine; Visit Provider Student in an Organized Health Care Education/Training Program
DX: N39.0 Urinary tract infection, site not specified (principal); E78.5 Hyperlipidemia, unspecified; I48.0 Paroxysmal atrial fibrillation; N40.1 Benign prostatic hyperplasia with lower urinary tract symptoms; B96.1 Klebsiella pneumoniae [K. pneumoniae] as the cause of diseases classified elsewhere; R33.8 Other retention of urine; I10 Essential (primary) hypertension; R31.0 Gross hematuria; Z87.891 Personal history of nicotine dependence; Z79.01 Long term (current) use of anticoagulants; Z79.899 Other long term (current) drug therapy
CPT/HCPCS: 36415; 74176; 80048; 80053; 81001; 83605; 83735; 85025; 85027; 87040; 87086; 87088; 87186; 99285; J0696; J7120

== ENCOUNTER → 2025-07-25 02:04 | Outpatient (BNV) | payer MEDICARE, SELFPAY | PROVIDERS: Admitting Provider Hospitalist; Emergency Provider Emergency Medicine; PCP Internal Medicine; Visit Provider Radiology Diagnostic Radiology | DX: N13.9 Obstructive and reflux uropathy, unspecified (principal); N40.1 Benign prostatic hyperplasia with lower urinary tract symptoms | CPT/HCPCS: 74176 ==

== ENCOUNTER → 2025-07-25 02:53 | Outpatient (BNV) | payer MEDICARE, SELFPAY | PROVIDERS: Admitting Provider Hospitalist; Emergency Provider Emergency Medicine; PCP Internal Medicine; Visit Provider Student in an Organized Health Care Education/Training Program | DX: A41.9 Sepsis, unspecified organism (principal); N39.0 Urinary tract infection, site not specified; R33.8 Other retention of urine | CPT/HCPCS: 99499 ==

== ENCOUNTER → 2025-07-25 02:53 | Outpatient (BNV) | payer MEDICARE, SELFPAY | PROVIDERS: Admitting Provider Hospitalist; Emergency Provider Emergency Medicine; PCP Internal Medicine; Visit Provider Urology | DX: R33.8 Other retention of urine (principal); N39.0 Urinary tract infection, site not specified; R31.0 Gross hematuria | CPT/HCPCS: 99222 ==